=== PATIENT | female | born 1955 | race Caucasian/White ===

== ENCOUNTER 2016-11-15 04:15 | Inpatient (IN) | payer OTHER ==
--- NOTE | ~2016-11-15 | CO ---
Unit #: [id number] #: [id number] Patient: DONNIE RILEY [id number] [facility] [address] [facility]. [place], [place] [address] [id number] I MR#: [id number] NAME: DONNIE RILEY ROOM: 324 Age: 61 Sex: F Admission Date: 11/15/2016 : 1955 Attending Physician: Michael Boogie M.D. Primary Care Physician: Alanis Perez Aprn Requesting Physician: Michael Boogie M.D. Consultation Date: 11/16/2016 CONSULTATION REPORT REASON FOR CONSULT Surgical clearance and congestive heart failure. HISTORY OF PRESENT ILLNESS This is a 60-year-old female with a past medical history of poorly-controlled diabetes, hypertension, chronic diastolic heart failure, and peripheral vascular disease, admitted with pain and an infection to her left foot, fourth toe, extending to the fifth toe. She presented to the emergency room with the chief complaint of foul-smelling discharge and dark discoloration of her left fourth toe. She had been noticing increased discharge for the last few days. She denied any fever, she denied any chills, and she denied any vomiting. Today, she does complain of nausea. She denies any bloody stools. She has no dizziness, no chest pain, no palpitations, and no shortness of breath. In the emergency room, she was noted to have an elevated white count. The plan for today is left toe amputation. Cardiology has been consulted to evaluate her surgical risk. She had a recent cardiac workup. She follows with Dr. Lynne in the office. She had a 2D echo in August 2016 when she was last admitted to [facility] which showed an EF of 60% and grade 1 diastolic dysfunction. She had a repeat 2D echo on September 21, 2016. Her EF was calculated at 53%. She had global left ventricular wall motion, and contractility was within normal limits. Normal LV function. Normal RV function. There was mild mitral regurgitation and tricuspid regurgitation. Right ventricular systolic pressure was calculated at 26 mmHg. Aortic valve was normal. There was LVH noted and grade 1 left ventricular diastolic dysfunction noted. She also had on October 22, 2016, a Lexiscan Cardiolite nuclear stress test which showed an EF of 50% and small distal anteroapical wall ischemia. I do not have her 12-lead EKG in front of me to review. However, tele review shows sinus rhythm in the 70s with no ectopic beats. PAST SURGICAL HISTORY 1. Cholecystectomy. 2. section. 3. Tonsillectomy. 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 She lives with her son and . She has never smoked and denies alcohol or any illicit drug use. Unit #: [id number] #: [id number] Patient: DONNIE RILEY FAMILY HISTORY Her father had some CHF. She is unsure of how old he was at the time of diagnosis and denies any other family cardiovascular history. ALLERGIES No known allergies. HOME MEDICATIONS 1. Norvasc 10 mg daily. 2. Lasix 40 mg daily. 3. Lisinopril 20 mg b.i.d. 4. Glucophage 1000 mg b.i.d. 5. Metoprolol succinate 100 mg b.i.d. 6. Protonix 40 mg daily. 7. Januvia 100 mg daily. 8. Aldactone 25 mg daily. REVIEW OF SYSTEMS A 12-point review of systems was noted in the History of Present Illness. She has no complaints today other than pain to her left foot and nausea. She denies any dizziness, she denies any chest pain, she denies any palpitations, she denies any shortness of breath, she denies any edema, and she denies any numbness or tingling to her feet. She reports that she walks well. She fell one month ago. That was after a mechanical slip however. PHYSICAL EXAMINATION VITAL SIGNS: Temperature 98.4, heart rate 91, respiratory rate 18, and blood pressure was 160/74. Please note though, her blood pressure on arrival on November 15, 2016, when she presented to the hospital was 200/99. GENERAL: She is seen and examined in her hospital room. She appears in mild distress due to her pain, and she is somewhat ill appearing. HEENT: Pupils are equal, round, and reactive to light and accommodation with extraocular movements intact. Head is normocephalic and atraumatic. She has pink and dry mucosal membranes. She has no teeth. She has top and bottom dentures. LUNGS: Clear to auscultation bilaterally. CARDIOVASCULAR: Regular rate and rhythm. S1 and S2 noted with a 2/6 systolic ejection murmur heard best at the apex. ABDOMEN: Soft and nontender with positive bowel sounds. EXTREMITIES: She has no edema noted but chronic venous stasis skin changes with yellow scaling to bilateral feet. She has no pedal pulses to her left foot and palpable pedal pulses to her right lower extremity. NEUROLOGIC: She is alert and oriented x3, pleasant and cooperative. DIAGNOSTIC STUDIES LABORATORY: Sodium 134, potassium 3.5, chloride 100, CO2 of 22, BUN 37, creatinine 1.2, and glucose 226. Total cholesterol is 140, triglycerides 105, LDL 92, and HDL 27. WBC 21.4, hemoglobin 9.6, hematocrit 28.5, and platelets 351,000. IMAGING: Three-view of the left foot on November 15, 2016, showed no acute fracture or dislocation and no osteomyelitis. Osteopenia. Advanced atherosclerotic changes. Left foot and ankle osteoarthritic changes as described above with prominent plantar calcaneal spur. CARDIOLOGY: I do not have an EKG from this admission, but an EKG from her last admission in August 2016 showed normal sinus rhythm with possible Unit #: [id number] #: [id number] Patient: DONNIE RILEY left atrial enlargement, low voltage QRS with T wave abnormality in lateral leads, prolonged QTc was calculated at 462, and atrial rate of 92 beats per minute, and this was unchanged from a previous EKG. IMPRESSION 1. Resistant hypertension. 2. Left foot pain and infection. 3. Diabetes. 4. Peripheral vascular disease. 5. Venous stasis. 6. Leukocytosis. PLAN Cardiology is asked to see her for surgical clearance. She had a recent workup which was essentially normal and follows with Dr. Lynne. She is very hypertensive. We will adjust her blood pressure medicine. She is on Spironolactone 25 mg daily, she is on a full dose of Norvasc and a full dose of Lopressor 100 b.i.d. She is on lisinopril 20 b.i.d. and Lasix 40 daily. We will also add hydralazine scheduled 25 mg 3 times daily. I do not have an EKG from this admission. I will ask for an EKG to be done before surgical plans later today for left toe amputation. She has been n.p.o. and will remain n.p.o. until postop. Further plans per attending. We will continue to follow her through her hospitalization for any cardiac-related issues. Thank you for this consultation. Dictated by.Nilsa Banerjee APRN for Elida Roblero TD: 11/17/2016 15:04 JOB #: [id number] CC: Roger Sanches M.D. CONSULTATION REPORT X X CONSULTATION REPORT
--- NOTE | ~2016-11-15 | XA166 ---
[facility] A Service of [facility] & [facility] RADIOLOGY TEXT RESULTS PATIENT: DONNIE RILEY LOCATION: C3A 324-01 : 55 UNIT #: [id number] AGE: [address]: Michael Boogie MD SEX: F ORDER DR: [id number] [facility] [address] [facility]. [place], [place] [address] [id number] I MR#: [id number] Acc #: [id number] NAME: DONNIE RILEY : 1955 SEX: F STUDY DATE/TIME: 11/17/2016 11:52 UNIT: C3A PCU ROOM: 324 STUDY DESCRIPTION: XA PICC Line Placement WO Port Attending Physician: Michael Boogie M.D. Referring Physician: Self Referral-Refer Use Only Ordering Physician: Michael Boogie M.D. Primary Care Physician: Alanis Perez Aprn MEDICAL IMAGING REPORT This report is preliminary unless electronic signature is present EXAM PICC line insertion, 11/17/2016 CLINICAL HISTORY IV access needed. PRE-PROCEDURE The procedure was explained to the patient and/or patient career services representative including risks, benefits, potential complications and potential for alternative forms of treatment. Informed consent was obtained, and prior to initiating the procedure a formal timeout procedure was performed. PROCEDURE Using full standard sterile barrier technique, including caps, gowns, gloves, masks, as well as sterile skin preparation and standard sterile draping, the right arm was prepped and draped in the usual fashion, and real-time sterile ultrasound guidance was used to localize an arm vein and to confirm vessel patency. A hard copy ultrasound image was recorded. After local anesthesia with 1% Xylocaine, the vein was punctured using real-time sterile ultrasound guidance, and an 0.018 guidewire was advanced into the superior vena cava, using fluoroscopic guidance. A 5 Swedish dual-lumen PICC was then measured and deployed with the tip positioned in the superior vena cava. The position of the line was documented with a radiographic image. The line was secured in place with an adhesive dressing and an antibiotic patch was applied. Total fluoro time was 0.2 minutes. Single fluoroscopic spot image. IMPRESSION Successful placement of a 5 Swedish dual-lumen PowerPICC via the arm under ultrasound and fluoroscopic guidance. The tip of the PICC is in good position in the superior vena cava. [facility]. [facility] A Service of [facility] RADIOLOGY TEXT RESULTS PATIENT: DONNIE RILEY LOCATION: C3A 324-01 : 55 UNIT #: [id number] AGE: [address]: Michael Boogie MD SEX: F ORDER DR: Dictated by... Watson Moraes M.D. THIS IS AN ELECTRONICALLY VERIFIED REPORT Watson Moraes M.D. at 11/18/2016 3:35 PM ARIAN/dana TD: 11/18/2016 03:19 JOB #: [id number] MEDICAL IMAGING REPORT COPY
--- NOTE | ~2016-11-15 | CR126 ---
[facility] A Service of [facility] & [facility] RADIOLOGY TEXT RESULTS PATIENT: DONNIE RILEY LOCATION: [facility] 324-01 : 55 UNIT #: [id number] AGE: [address]: Michael Boogie MD SEX: F ORDER DR: [id number] [facility] [address] [facility]. [place], [place] [address] [id number] I MR#: [id number] Acc #: [id number] NAME: DONNIE RILEY : 1955 SEX: F STUDY DATE/TIME: 11/15/2016 5:04 UNIT: [facility] ROOM: 82017 STUDY DESCRIPTION: CR Foot Complete Min 3 View Lt Attending Physician: Michael Boogie M.D. Referring Physician: Self Referral-Refer Use Only Ordering Physician: Alice Aparicio M.D. Primary Care Physician: Alanis Perez Aprn MEDICAL IMAGING REPORT This report is preliminary unless electronic signature is present EXAM Left foot 3 views 11/15/2016 05:04 HISTORY Left foot pain and fourth digit infection for 4 days. No known injury. Diabetes. COMPARISON None. FINDINGS Evaluation of the toes is limited secondary to extension at the MTP joints and flexion at the interphalangeal joints. Allowing for this, no acute fracture or joint dislocation is seen. Osteopenic changes are present. No plain film evidence of osteomyelitis. Dense calcific atherosclerosis is seen within the left foot and ankle. Degenerative spurring of the posterior tibia at its articular surface. Prominent plantar calcaneal spur. Mild dorsal midfoot spurring. IMPRESSION 1. No acute fracture or dislocation. No plain film evidence of osteomyelitis with particular attention to the fourth digit. 2. Osteopenia. 3. Advanced atherosclerotic changes. 4. Left foot and ankle osteoarthritic changes as described above with prominent plantar calcaneal spur. Dictated by... Sun Hendrickson M.D. THIS IS AN ELECTRONICALLY VERIFIED REPORT Sun Hendrickson M.D. at 11/15/2016 10:02 PM [facility] A Service of [facility] RADIOLOGY TEXT RESULTS PATIENT: DONNIE RILEY LOCATION: A 324-01 : 55 UNIT #: [id number] AGE: [address]: Michael Boogie MD SEX: F ORDER DR: SHELLEY/fara TD: 11/15/2016 08:52 JOB #: [id number] MEDICAL IMAGING REPORT COPY
--- NOTE | ~2016-11-15 | OR ---
Unit #: [id number] #: [id number] Patient: DONNIE RILEY [id number] [address] [place], [place] [address] [id number] I MR#: [id number] NAME: DONNIE RILEY ROOM: 324 Date of Procedure: 11/16/2016 Admission Date: 11/15/2016 Surgeon: Maximilian Dave M.D. : 1955 Attending Physician: Michael oBogie M.D. Primary Care Physician: Alanis Perez Aprn OPERATIVE REPORT PREOPERATIVE DIAGNOSIS Left fourth toe gangrene. POSTOPERATIVE DIAGNOSIS Left fourth toe gangrene. PROCEDURE PERFORMED Left fourth toe open amputation through metatarsophalangeal joint (34182). ASSISTANTS MD Sloan and BIENVENIDO Flores. ANESTHESIA General. INDICATIONS FOR SURGERY This is 60-year-old female with diabetes, diabetic neuropathy, and peripheral vascular disease, presents with a 3-day history of worsening left fourth toe gangrene. She has a dorsalis pedis pulse. She has a malodorous toe and has underlying infection. She is therefore to undergo fourth toe amputation. DESCRIPTION OF PROCEDURE The patient was taken to the operating room and placed in a supine position, and general anesthetic was induced. The left fourth toe was identified as the correct operative extremity during the time-out procedure. The IV antibiotic protocol was not followed, because she was on preoperative IV antibiotics. The left foot was then prepped and draped in the usual sterile fashion. The leg was exsanguinated with an Esmarch bandage, which was left wrapped around the ankle to act as a tourniquet. Dorsal and plantar fish-mouth incisions were made at the base of the toe and dissection proceeded directly down to the metatarsophalangeal joint and the capsule was opened. The collateral ligaments were divided and the toe was removed. There was dark fluid extending up the flexor tendon sheath associated with some purulence. This was cultured for aerobic and anaerobic bacteria. All appearing tissue was removed. All infected appearing tissue was removed. The wound was then irrigated with 1 L of normal saline. The wound was packed open with Betadine-soaked 1-inch roll gauze. Dressing, sponges, Kerlix, Rocco wrap, and postop shoe were placed. The patient was then transported to the recovery room in stable condition. Unit #: [id number] #: [id number] Patient: DONNIE RILEY ESTIMATED BLOOD LOSS Minimal. COMPLICATIONS None. SPECIMENS 1. Left fourth toe. 2. Left foot culture and sensitivity. PLAN The patient will undergo serial wet-to-dry dressing changes with 1/2 strength Dakin solution and IV antibiotics. We will either close the wound secondarily in 4 to 5 days or allow the wound to close by secondary intention. Dictated by.Elida García/jitendra TD: 11/16/2016 18:58 JOB #: [id number] OPERATIVE REPORT X Antoine Dave MD X PROCEDURE OPERATIVE NOTE
--- NOTE | ~2016-11-15 | EKG ---
PATIENT: DONNIE RILEY UNIT #: [id number] Ventricular Rate: 74 BPM Atrial Rate: 74 BPM P-R Interval: 136 ms QRS Duration: 98 ms Q-T Interval: 408 ms QTC Calculation(Bezet): 452 ms P [place]: 54 degrees Calculated R [place]: 11 degrees Calculated T [place]: 118 degrees Diagnosis Line: Normal sinus rhythm Diagnosis Line: T wave abnormality, consider lateral ischemia Diagnosis Line: Abnormal ECG Diagnosis Line: When compared with ECG of 02-SEP-2016 03:39, Diagnosis Line: No significant change was found Diagnosis Line: Confirmed by NATIVIDAD ZHONG MD ([id number]) on Diagnosis Line: 11/17/2016 11:23:34 AM INTERPRETING MD: FARHEEN CHU
--- NOTE | ~2016-11-15 | OR ---
Unit #: [id number] #: [id number] Patient: DONNIE RILEY [id number] [address] [place], [place] [address] [id number] I MR#: [id number] NAME: DONNIE RILEY ROOM: 324 Date of Procedure: 11/25/2016 Admission Date: 11/15/2016 Surgeon: Maximilian Dave M.D. : 1955 Attending Physician: Michael Boogie M.D. Referring Physician: Self Referral-Refer Use Only Primary Care Physician: Alanis Perez Aprn OPERATIVE REPORT PREOPERATIVE DIAGNOSES 1. Left third toe gangrene. 2. Left foot wound. POSTOPERATIVE DIAGNOSES 1. Left third toe gangrene. 2. Left foot wound. PROCEDURES PERFORMED 1. Left third toe amputation through metatarsophalangeal joint (33804). 2. Left foot wound closure (26935). PRODUCT MANAGEMENT INTERN Saccone. ANESTHESIA General. INDICATIONS FOR SURGERY The patient is a 60-year-old female, who underwent left fourth toe open amputation 9 days ago. She now has a granulating wound with gangrene of the adjacent third toe. She therefore requires third toe amputation as well as wound closure. Her deep infection appears to be resolved. DESCRIPTION OF PROCEDURE The patient was taken to the operating room and placed in supine position. General anesthetic was induced. The left foot was identified as the correct operative extremity during the time-out procedure. The IV antibiotic protocol was not followed because she was on preoperative IV antibiotics. The left foot was then prepped and draped in the usual sterile fashion. The foot was exsanguinated with an Esmarch bandage, which was left wrapped around the ankle to act as a tourniquet. Dorsal and plantar fish-mouth incisions were made around the base of the third toe. The subcutaneous tissue was divided. The toe was disarticulated by dividing the collateral ligaments as well as the extensor and flexor tendons. The toe was removed and sent to pathology. Aerobic and anaerobic cultures were taken. There was necrosis of the plantar fat pad underlying the third toe. This was excised. All necrotic tissue was sharply debrided. The wound was then irrigated with 1 L of normal saline. The wound was then closed in layers using 3-0 Vicryl simple sutures and 3-0 nylon simple and dpt-hulf-mori-far sutures. Unit #: [id number] #: [id number] Patient: DONNIE RILEY gauze dressing, sponges, Webril, Rocco wrap, and postoperative shoe were placed. The patient was then transported to the recovery room in stable condition. ESTIMATED BLOOD LOSS Minimal. COMPLICATIONS None. SPECIMENS Left foot cultures and left third toe. Dictated by.Elida García/jitendra TD: 11/26/2016 06:08 JOB #: [id number] OPERATIVE REPORT Page 1 of 1 X Antoine Dave MD X PROCEDURE OPERATIVE NOTE
--- NOTE | ~2016-11-15 | DS ---
Unit #: [id number] #: [id number] Patient: DONNIE RILEY [id number] [address] [place], [place] [address] [id number] I MR#: [id number] NAME: DONNIE RILEY ROOM: 324 Age: 61 Sex: F Admission Date: 11/15/2016 : 1955 Discharge Date: 11/27/2016 Attending Physician: Michael Boogie M.D. Primary Care Physician: Alanis Perez Aprn DISCHARGE SUMMARY ADDENDUM The patient tolerated her procedure well and currently denies pain. She states that she has had no further nausea or vomiting. As a result of these things, she is being discharged home to continue one week of IV antibiotics for her diabetic foot infection. The patient was started on insulin for her diabetes, but has had significant problems with hypoglycemia. As a result, I am not sending her home on insulin, but we will continue her Glucophage and Januvia. She should certainly see her primary care provider; however, given that her hemoglobin A1c is 11. DISCHARGE MEDICATIONS Glucophage 1000 mg p.o. b.i.d., Januvia 100 mg p.o. daily, Phenergan 25 mg p.o. q.4 hours p.r.n., Norvasc 10 mg daily, metoprolol succinate 100 mg p.o. b.i.d., Lasix 20 mg daily, Lipitor 20 mg p.o. q.h.s., lisinopril 20 mg p.o. b.i.d., aspirin 81 mg daily, Aldactone 25 mg daily, Protonix 40 mg daily, Rocephin 2 g IV daily x1 week. FOLLOWUP The patient being discharged home with home health for PT, OT, IV antibiotic. Additionally, the patient should follow up with Dr. Maximilian Dave in 10 to 14 days. The patient should keep the dressing intact until seen in the office. DISCHARGE DIET The patient should maintain a diabetic diet. Additionally, the patient should follow up with her primary care provider in one week. Dictated by... Bravo Alford M.D. NATALI/jitendra TD: 11/27/2016 18:58 JOB #: [id number] Unit #: [id number] #: [id number] Patient: DONNIE RILEY DISCHARGE SUMMARY Page 1 of 1 X Bravo Alford MD X DISCHARGE SUMMARY
--- NOTE | ~2016-11-15 | HP ---
Unit #: [id number] #: [id number] Patient: DONNIE RILEY [id number] [address] [place], [place] [address] [id number] I MR#: [id number] NAME: DONNIE RILEY ROOM: 324 Age: 60 Sex: F Admission Date: 11/15/2016 : 1955 Attending Physician: Michael Boogie M.D. Referring Physician: Self Referral-Refer Use Only Primary Care Physician: Alanis Perez Aprn HISTORY AND PHYSICAL CHIEF COMPLAINT Pain and swelling of the left foot fourth toe. HISTORY OF PRESENT ILLNESS The patient is a 60-year-old lady with a past medical history of diabetes mellitus, hypertension, history of congestive heart failure with a recent cardiac cath done at [facility] with Dr. Lynne. Presented to the emergency room with a chief complaint of foul-smelling discharge and dark dislocation of left foot fourth toe. 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 She denies any fever. Denies any chills. Complains of nausea. Denies any vomiting. Denies any diarrhea. In the emergency room initial evaluation, she was noted to have an elevated WBC count and with wet gangrene. For further evaluation, she is getting admitted. PAST MEDICAL HISTORY 1. History of congestive heart failure with a recent cath done at [facility]. She does not know the echo results. She mentioned that she was told the cath was normal. 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 2. History of diabetes mellitus type 2. 3. History of hypertension. 4. History of obesity. 5. Noncompliance. ALLERGIES No known drug allergies. HOME MEDICATIONS 1. Norvasc 10 mg daily. 2. Lasix 40 mg daily. 3. Lisinopril 20 mg twice a day. 4. Metformin 1000 mg twice a day. 5. Metoprolol 100 mg twice a day. 6. Protonix 40 mg daily. 7. Januvia 100 mg daily. 8. Aldactone 25 mg daily. ALLERGIES No known drug allergies. SOCIAL HISTORY Denies any smoking, alcohol, illicit drugs. Unit #: [id number] #: [id number] Patient: DONNIE RILEY REVIEW OF SYSTEMS A complete review of systems done and negative except for what is mentioned in the HPI. FAMILY HISTORY Positive for diabetes and congestive heart failure in her father. PHYSICAL EXAMINATION VITAL SIGNS: Temperature 98.8, pulse rate 96, respiratory rate 17, blood pressure 180/85. GENERAL: The patient is alert and oriented x3. Lying in the bed in no acute distress. HEENT: Normocephalic and atraumatic. No icterus. PERRLA. Extraocular muscles intact. NECK: Supple. No JVD. HEART: S1, S2. Regular rate and rhythm. CHEST: Bilateral equal air entry. Clear to auscultation. ABDOMEN: Obese, soft, nontender. EXTREMITIES: Trace edema. Left foot is totally dressed. She would not let me unwrap it. She has a foul-smelling discharge. DIAGNOSTIC STUDIES LABORATORY: Glucose 277, BUN 25, creatinine 0.9, sodium 134, potassium 3.5, chloride 95, bicarbonate 25. WBC 24.2, hemoglobin 12, platelets 427,000, neutrophils 88.2. ASSESSMENT AND PLAN 1. Diabetic foot infection with left fourth toe wet gangrene. Orthopedic surgery is consulted. She is currently getting vancomycin and Zosyn. Blood cultures were sent. Will go from ortho input. Possibly, she may end up having an amputation of the fourth toe tomorrow. 2. History of congestive heart failure: I will try to obtain the records from [facility]. Cardiology is consulted. Will discuss with them. She mentions that she is able to walk two blocks without feeling any shortness of breath or chest pain. She mentions that she does not wake up in the night due to shortness of breath. She should be okay to go for surgery with acceptable risk. Her last echocardiogram done in August showed an ejection fraction of 60%, possibly diastolic heart failure. 3. Hypertensive crisis: Doubt compliance. Will give her p.r.n. hydralazine. Will resume her home medications and monitor. 4. Diabetes: Poorly controlled type 2. Encouraged compliance with the medications. Will check an A1c and possibly start her on insulin sliding scale. 5. Will also check a lipid panel. 6. Deep venous thrombosis precautions. 7. Further recommendations per hospital course. Dictated by Michael Boogie M.D. PS/ch TD: 11/15/2016 11:51 JOB #: [id number] Unit #: [id number] #: [id number] Patient: DONNIE RILEY HISTORY AND PHYSICAL X X HISTORY AND PHYSICAL
--- NOTE | ~2016-11-15 | A ---
[facility] Nutrition Therapy DATE: 11/26/16 Patient: DONNIE RILEY Physician: HAZEL Address: [address] [place] [address] Room/Bed: [address], Zip: [place] [address] Admit Date: 11/15/16 Date of : [birth year] Height: 4 11 Weight: 135 61.5 NUTRITIONAL ASSESSMENT: REASON: LOS 60 y/o female admitted for an infected L foot PMH: DM, HTN, CHF Anthropometrics: Ht: 4'11" Wt: 61.4 kg (135#) BMI: 27.3 Labs: Gluc 66, BUN 28, GFR 48.7 Meds: Phenergan, K, Mg, Lipitor, Furosemide, Novolog, Zofran I/O & Bowel function: 2694/1601, last BM 11/25 Skin Integrity: Closed surgical incision (L foot), no edema noted Assessment: Chart reviewed, events noted. Pt is POD #1 of L foot wound closer and 3rd toe amputation, POD #2 L 4th toe amputation. Gluc levels have ranged from 131-368, today levels have dropped to 66 d/t NPO status. Pt reports consuming most of meals while here. Pt reports occasional N/V. Pt denied having any questions regarding nutrition/ her diet. See recommendations below. Dx: Overweight RT PMH AEB 27.3 BMI. Intervention: 1. CC + HH diet Monitoring, Evaluation and Goals: 1. Weight; promote gradual weight loss 2. Labs; WNL: Gluc 3. Skin; promote skin healing Recommendations: 1. Change diet to consistent carb + healthy heart diet to promote gradual weight loss. Pt is at a mild nutritional risk. RD will f/u per protocol. Respectfully, [facility] Nutrition Therapy DATE: 11/26/16 Patient: DONNIE RILEY Physician: HAZEL Address: [address] Room/Bed: [address], Zip: [place] [address] Admit Date: 11/15/16 Date of : [birth year] Height: 4 11 Weight: 135 61.5 PATRICIO BAXTER, [employer] [facility] cc: client file
--- NOTE | ~2016-11-15 | CO ---
Unit #: [id number] #: [id number] Patient: DONNIE RILEY [id number] [address] [address] [id number] I MR#: [id number] NAME: DONNIE RILEY ROOM: 324 Age: 61 Sex: F Admission Date: 11/15/2016 : 1955 Attending Physician: Michael Boogie M.D. Primary Care Physician: Alanis Perez Aprn Consultation Date: 11/15/2016 CONSULTATION REPORT REASON FOR CONSULTATION Right foot wound and infection. HISTORY OF PRESENT ILLNESS The patient is a 60-year-old female, who was previously admitted back in 08/2016 for hypertensive crisis as well as CHF exacerbation. At that period of time, she was subsequently discharged without any notable complications. She comes today to the emergency room with progressive worsening of a left foot fourth digit infection. She states that the toe has started to change colors over the last several days and it started to have an abnormal odor and smell to it. She denies any constitutional symptoms today. PAST MEDICAL HISTORY Significant for; 1. Hypertension. 2. Diabetes. 3. CHF. MEDICATIONS Includes Norvasc 10 mg daily, Lasix 40 mg daily, lisinopril 20 mg b.i.d., Glucophage 1000 mg b.i.d., metoprolol 100 mg b.i.d., Protonix 40 mg daily, Januvia 100 mg daily, and Aldactone 25 mg daily. ALLERGIES No known drug allergies. PAST SURGICAL HISTORY Cholecystectomy, , and tonsillectomy. FAMILY HISTORY The patient lives here in [place]. 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 SOCIAL HISTORY She denies any tobacco, alcohol, or illicit drug use. REVIEW OF SYSTEMS A 10-point review of systems was performed and negative except for pertinent positives listed in HPI. PHYSICAL EXAMINATION VITAL SIGNS: Afebrile. Vital signs stable. GENERAL: Alert and oriented x3, in no acute distress. Unit #: [id number] #: [id number] Patient: DONNIE RILEY EXTREMITIES: Focused lower extremity examination, dermatological: There is dry circumferential gangrene to left foot fourth digit localized to the middle phalanx and distal to the terminal tuft. There is localized surrounding erythema with no proximal lymphatic streaking noted. There is no crepitation noted upon palpation of the soft tissues. There is malodor present. NEUROLOGICAL: Loss of protective sensation. VASCULAR: Nonpalpable posterior tibial pulse of the left lower extremity. There is a minimally palpable dorsalis pedis pulse of the left lower extremity. There is zero capillary refill time to the left foot fourth digit. The rest of the digits are warm and well perfused. MUSCULOSKELETAL: She is able to wiggle the digits of her left foot. Dorsiflexion and plantar flexion of the ankle is intact. DIAGNOSTIC STUDIES LABORATORY RESULTS: There is a leukocytosis. White cell count of 24.2, hemoglobin 12, hematocrit 34.7, platelets 427. BMP; sodium is 134, potassium 3.5, chloride 95, CO2 of 25, BUN 25, creatinine 0.9, glucose 277. Lactic acid was 1.2 on initial admission, repeat was 0.9. CRP is elevated at 14.3. Preliminary wound cultures demonstrated gram-positive cocci in pairs, as well as gram-negative rods. IMAGING STUDIES: X-rays demonstrate Monckeberg medial calcific sclerosis with no evidence of any underlying osteomyelitis, osteolysis, or subcutaneous soft tissue gas emphysema. ASSESSMENT AND PLAN The patient is a 60-year-old female with a history of congestive heart failure, peripheral arterial disease, as well as an underlying history of diabetes and hypertension. She will be admitted today to the hospital for left foot fourth digit gangrene. At this period of time, she does have a palpable dorsalis pedis pulse and nonpalpable posterior tibial pulse. We do not need ABIs at this period of time. The x-rays demonstrate that there is no evidence of any underlying soft tissue gas emphysema, or osteomyelitis. We are going to continue her vancomycin and Zosyn at this period of time. She is going to be scheduled for the OR tomorrow on 11/16/[address] Dave for a left foot fourth digit toe amputation. She can have a diabetic diet for now. She is going to be n.p.o. at midnight. We are going to discontinue her anticoagulation at midnight. Consent was placed in the chart for the surgery and the risks, benefits, complications, and alternatives were discussed with the patient. Morning labs were ordered for CBC with diff, BMP, and coagulation studies. We did a Betadine wet-to-dry dressing today to the left foot fourth digit. She can be weightbearing as tolerated in a postoperative shoe. We had consults for Cardiology to clear the patient for surgery tomorrow as well as HIPS consultation to admit the patient to the hospital. We are going to continue all her home medications at this period of time. Dictated by... Graeme Flores M.D. for Elida Mejia/jitendra TD: 11/15/2016 14:26 JOB #: [id number] Unit #: [id number] #: [id number] Patient: DONNIE RILEY CONSULTATION REPORT X X CONSULTATION REPORT
--- NOTE | ~2016-11-15 | DS ---
Unit #: [id number] #: [id number] Patient: DONNIE RILEY [id number] [address] [place], [place] [address] [id number] I MR#: [id number] NAME: DONNIE RILEY ROOM: 324 Age: 61 Sex: F Admission Date: 11/15/2016 : 1955 Discharge Date: Attending Physician: Michael Boogie M.D. 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 PROCEDURES DONE She had a left fourth toe gangrene, status post amputation of the toe on the 11/16/2016 and on the 11/25/2016, she had an amputation of the third toe. ADMITTING DIAGNOSIS Diabetic foot infection. SECONDARY DIAGNOSES Diabetes, type 2, poorly controlled; history of hypertension; history of congestive heart failure. HISTORY OF PRESENT ILLNESS The patient is a 60-year-old lady with a past medical history of diabetes mellitus, hypertension, history of congestive heart failure with a recent catheterization done at [facility], presented to the emergency with a chief complaint of foul-smelling discharge from the fourth toe. HOSPITAL COURSE She was seen by Dr. Dave. She had an amputation of the fourth toe. The wound cultures grew Streptococcal species Strep agalactiae and Strep milleri. She was started on Rocephin. She got a PICC line and Orthopedic surgery on the mentioned she needs a second surgery and she was in the hospital for the second surgery. Yesterday, she had a second surgery and she had an amputation of the third toe. Postoperatively, she was having severe nausea and vomiting and her sugars were dropping down. We held her Levemir today mainly because her sugars were dropping down and once her sugars are stable enough, she will be able to go home. She does have a PICC line. She needs antimicrobials for a couple of weeks. Kindly note, the infected toe has been removed and home health care is being arranged by the hospice case manager. Kindly note, a final discharge summary will be dictated by me or my colleagues at the time of actual discharge. Dictated by... Elida Bhatia/jitendra Unit #: [id number] #: [id number] Patient: DONNIE RILEY TD: 11/27/2016 02:50 JOB #: [id number] DISCHARGE SUMMARY Page 1 of 1 X X DISCHARGE SUMMARY
--- NOTE | ~2016-11-15 | EKG ---
PATIENT: DONNIE RILEY UNIT #: [id number] Ventricular Rate: 56 BPM Atrial Rate: 56 BPM P-R Interval: 136 ms QRS Duration: 94 ms Q-T Interval: 440 ms QTC Calculation(Bezet): 424 ms P [place]: 57 degrees Calculated R [place]: 38 degrees Calculated T [place]: 135 degrees Diagnosis Line: Sinus bradycardia Diagnosis Line: T wave abnormality, consider lateral ischemia Diagnosis Line: Abnormal ECG Diagnosis Line: No previous ECGs available Diagnosis Line: Confirmed by TOMA ELIZABETH MD ([id number]) on 11/29/2016 Diagnosis Line: 10:43:36 PM INTERPRETING MD: CLARA CHU
[~2016-11-15 04:15] MED LIST: ALDACTONE PO; ALDACTONE25 MG PO; ALEVE; AMOXICILLIN500 M1 PO; BENZONATATE PO; EC-NAPROSYN500 MG PO; ERYTHROMYCIN O3.5 GM OD; GLUCOPHAGE500 MG PO; JANUVIA PO; LASIX PO; LASIX20 MG PO; LISINOPRIL20 MG PO; METFORMIN PO; METOPROLOL SUC100 MG PO; NORVASC10 MG PO; PANTOPRAZOLE SO40 MG PO; PROTONIX PO; ROBITUSSIN A-C S5 ML PO
[2016-11-15 05:29] LABS: BASOPHIL# 0.1 X10e3 (0-0.3); BASOPHIL% 0.4 % (0-2.5); EOSINOPHIL# 0.1 X10e3 (0-0.7); EOSINOPHIL% 0.6 % (0.0-7.0); HEMATOCRIT 34.7 % (35.0-45.0); LYMPHOCYTE# 1.2 X10e3 (1.0-3.5); LYMPHOCYTE% 4.7 % (17.0-45.0); MEAN CELL VOLUME 86.4 FL (83-96); MEAN CORPUSCULAR HEMOGLOBIN 29.9 PG (28-34); MEAN CORPUSCULAR HGB CONC 34.6 g/dL (30-36); MEAN PLATELET VOLUME 7.7 FL (6.5-11.5); MONOCYTE# 1.5 X10e3 (0-1.0); MONOCYTE% 6.1 % (3.0-12.0); NEUTROPHIL# 21.4 X10e3 (1.5-7.1); NEUTROPHIL% 88.2 % (40-75); PLATELET COUNT 427 X10e3 (140-420); RED BLOOD COUNT 4.02 X10e (3.90-5.30); RED CELL DISTRIBUTION WIDTH 12.7 % (11.0-15.5); WHITE BLOOD COUNT 24.2 X10e3 (4.0-10.5)
[2016-11-15 05:30] LABS: DIFF IND YES
[2016-11-15 05:44] LABS: BLOOD UREA NITROGEN 25 mg/dL (9-23); BUN/CREATININE RATIO 27.77; CALCIUM SERUM 9.1 mg/dL (8.4-10.2); CARBON DIOXIDE 25 mmol/L (22-31); CHLORIDE 95 mmol/L (100-111); CREATININE SERUM 0.9 mg/dL (0.6-1.4); GLOM FILT RATE Estimated ABOVE60 mL/min (>60); GLUCOSE FASTING 277 mg/dL (70-110); POTASSIUM 3.5 mmol/L (3.5-5.1); SODIUM 134 mmol/L (135-145)
[2016-11-15 05:46] LABS: INR 1.1; PARTIAL THROMBOPLASTIN TIME 24.2 SECONDS (23.5-31.3); PROTHROMBIN TIME (PATIENT) 11.5 SECONDS (9.6-11.5)
[2016-11-15 05:51] LABS: PLATELET ESTIMATE NORMAL (NORMAL); RBC NORMAL YES
[2016-11-16 07:33] LABS: HEMATOCRIT 28.5 % (35.0-45.0); MEAN CELL VOLUME 88.4 FL (83-96); MEAN CORPUSCULAR HEMOGLOBIN 29.7 PG (28-34); MEAN CORPUSCULAR HGB CONC 33.6 g/dL (30-36); MEAN PLATELET VOLUME 7.8 FL (6.5-11.5); RED BLOOD COUNT 3.22 X10e (3.90-5.30); RED CELL DISTRIBUTION WIDTH 12.8 % (11.0-15.5); WHITE BLOOD COUNT 21.4 X10e3 (4.0-10.5)
[2016-11-16 07:39] LABS: HEMOGLOBIN 9.6 gm/dL (12.0-16.0)
[2016-11-16 08:01] LABS: BUN/CREATININE RATIO 30.83; CALCIUM SERUM 8.4 mg/dL (8.4-10.2); CREATININE SERUM 1.2 mg/dL (0.6-1.4); GLOM FILT RATE Estimated 48.5 mL/min (>60); POTASSIUM 3.5 mmol/L (3.5-5.1)
[2016-11-16 08:03] LABS: CHOLESTEROL 140 mg/dL (0-200); HDL CHOLESTEROL 27 mg/dL (35-95); LDL CHOLESTEROL 92 mg/dL (-130); LDL/HDL RATIO 3 RATIO (0-4); TRIGLYCERIDES 105 mg/dL (10-160)
[2016-11-16 23:48] LABS: URINE BILIRUBIN NEG (NEG); URINE BLOOD NEG (NEG); URINE GLUCOSE 100 MG/DL (NORM); URINE KETONE NEG (NEG); URINE LEUKOCYTE ESTERASE NEG (NEG); URINE NITRATE NEG (NEG); URINE PROTEIN 2+ (NEG); URINE UROBILINOGEN NORM (NORM)
[2016-11-16 23:53] LABS: URINE APPEARANCE CLOUDY; URINE COLOR YELLOW
[2016-11-17 07:16] LABS: HEMATOCRIT 27.4 % (35.0-45.0); HEMOGLOBIN 9.2 gm/dL (12.0-16.0); MEAN CELL VOLUME 88.2 FL (83-96); MEAN CORPUSCULAR HEMOGLOBIN 29.5 PG (28-34); MEAN CORPUSCULAR HGB CONC 33.4 g/dL (30-36); MEAN PLATELET VOLUME 7.4 FL (6.5-11.5); RED BLOOD COUNT 3.11 X10e (3.90-5.30); RED CELL DISTRIBUTION WIDTH 13.2 % (11.0-15.5); WHITE BLOOD COUNT 22.8 X10e3 (4.0-10.5)
[2016-11-17 08:13] LABS: BUN/CREATININE RATIO 32.14; CALCIUM SERUM 8.4 mg/dL (8.4-10.2); CREATININE SERUM 1.4 mg/dL (0.6-1.4); GLOM FILT RATE Estimated 40.6 mL/min (>60); POTASSIUM 3.2 mmol/L (3.5-5.1)
[2016-11-18 06:36] LABS: HEMATOCRIT 27.2 % (35.0-45.0); HEMOGLOBIN 9.2 gm/dL (12.0-16.0); MEAN CELL VOLUME 87.8 FL (83-96); MEAN CORPUSCULAR HEMOGLOBIN 29.8 PG (28-34); MEAN CORPUSCULAR HGB CONC 33.9 g/dL (30-36); RED BLOOD COUNT 3.1 X10e (3.90-5.30)
[2016-11-18 07:01] LABS: CALCIUM SERUM 8.6 mg/dL (8.4-10.2); CREATININE SERUM 1.4 mg/dL (0.6-1.4); GLOM FILT RATE Estimated 40.6 mL/min (>60); POTASSIUM 3.6 mmol/L (3.5-5.1)
[2016-11-19 06:07] LABS: HEMATOCRIT 26.7 % (35.0-45.0); MEAN CELL VOLUME 88.8 FL (83-96); MEAN CORPUSCULAR HEMOGLOBIN 29.8 PG (28-34); MEAN CORPUSCULAR HGB CONC 33.6 g/dL (30-36); RED BLOOD COUNT 3.01 X10e (3.90-5.30); RED CELL DISTRIBUTION WIDTH 12.6 % (11.0-15.5); WHITE BLOOD COUNT 16.1 X10e3 (4.0-10.5)
[2016-11-19 08:14] LABS: BUN/CREATININE RATIO 29.28; CALCIUM SERUM 8.5 mg/dL (8.4-10.2); CREATININE SERUM 1.4 mg/dL (0.6-1.4); GLOM FILT RATE Estimated 40.6 mL/min (>60); POTASSIUM 3.6 mmol/L (3.5-5.1)
[2016-11-20 06:21] LABS: HEMATOCRIT 27.3 % (35.0-45.0); MEAN CELL VOLUME 89.4 FL (83-96); MEAN CORPUSCULAR HEMOGLOBIN 29.6 PG (28-34); MEAN CORPUSCULAR HGB CONC 33.1 g/dL (30-36); MEAN PLATELET VOLUME 7.6 FL (6.5-11.5); RED BLOOD COUNT 3.05 X10e (3.90-5.30); RED CELL DISTRIBUTION WIDTH 12.8 % (11.0-15.5); WHITE BLOOD COUNT 13.8 X10e3 (4.0-10.5)
[2016-11-20 07:03] LABS: BUN/CREATININE RATIO 35.45; CALCIUM SERUM 8.5 mg/dL (8.4-10.2); CREATININE SERUM 1.1 mg/dL (0.6-1.4); GLOM FILT RATE Estimated 53.7 mL/min (>60); MAGNESIUM 1.8 mg/dL (1.6-3.0); POTASSIUM 4.1 mmol/L (3.5-5.1)
[2016-11-21 05:57] LABS: HEMATOCRIT 26.5 % (35.0-45.0); HEMOGLOBIN 8.7 gm/dL (12.0-16.0); MEAN CELL VOLUME 90.4 FL (83-96); MEAN CORPUSCULAR HEMOGLOBIN 29.6 PG (28-34); MEAN CORPUSCULAR HGB CONC 32.8 g/dL (30-36); MEAN PLATELET VOLUME 8.1 FL (6.5-11.5); RED BLOOD COUNT 2.93 X10e (3.90-5.30); RED CELL DISTRIBUTION WIDTH 13.2 % (11.0-15.5); WHITE BLOOD COUNT 13.8 X10e3 (4.0-10.5)
[2016-11-21 06:36] LABS: BUN/CREATININE RATIO 32.5; CALCIUM SERUM 8.4 mg/dL (8.4-10.2); CREATININE SERUM 1.2 mg/dL (0.6-1.4); GLOM FILT RATE Estimated 48.5 mL/min (>60)
[2016-11-22 08:29] LABS: HEMATOCRIT 28.9 % (35.0-45.0); HEMOGLOBIN 9.3 gm/dL (12.0-16.0); MEAN CELL VOLUME 90.5 FL (83-96); MEAN CORPUSCULAR HEMOGLOBIN 29.1 PG (28-34); MEAN CORPUSCULAR HGB CONC 32.2 g/dL (30-36); MEAN PLATELET VOLUME 8.2 FL (6.5-11.5); RED BLOOD COUNT 3.2 X10e (3.90-5.30); RED CELL DISTRIBUTION WIDTH 13.3 % (11.0-15.5); WHITE BLOOD COUNT 19.6 X10e3 (4.0-10.5)
[2016-11-22 09:06] LABS: CALCIUM SERUM 9.2 mg/dL (8.4-10.2); CREATININE SERUM 1.5 mg/dL (0.6-1.4); GLOM FILT RATE Estimated 37.5 mL/min (>60); POTASSIUM 4.5 mmol/L (3.5-5.1)
[2016-11-23 07:02] LABS: HEMATOCRIT 26.4 % (35.0-45.0); HEMOGLOBIN 8.6 gm/dL (12.0-16.0); MEAN CELL VOLUME 89.8 FL (83-96); MEAN CORPUSCULAR HEMOGLOBIN 29.3 PG (28-34); MEAN CORPUSCULAR HGB CONC 32.6 g/dL (30-36); MEAN PLATELET VOLUME 7.8 FL (6.5-11.5); RED BLOOD COUNT 2.94 X10e (3.90-5.30); RED CELL DISTRIBUTION WIDTH 13.1 % (11.0-15.5)
[2016-11-23 07:27] LABS: CALCIUM SERUM 8.8 mg/dL (8.4-10.2); GLOM FILT RATE Estimated 59.9 mL/min (>60); POTASSIUM 3.9 mmol/L (3.5-5.1)
[2016-11-24 07:32] LABS: HEMATOCRIT 25.8 % (35.0-45.0); HEMOGLOBIN 8.5 gm/dL (12.0-16.0); MEAN CELL VOLUME 90.2 FL (83-96); MEAN CORPUSCULAR HEMOGLOBIN 29.8 PG (28-34); MEAN CORPUSCULAR HGB CONC 33.1 g/dL (30-36); MEAN PLATELET VOLUME 7.7 FL (6.5-11.5); RED BLOOD COUNT 2.86 X10e (3.90-5.30); RED CELL DISTRIBUTION WIDTH 13.1 % (11.0-15.5); WHITE BLOOD COUNT 14.1 X10e3 (4.0-10.5)
[2016-11-24 08:11] LABS: CALCIUM SERUM 8.8 mg/dL (8.4-10.2); GLOM FILT RATE Estimated 59.9 mL/min (>60)
[2016-11-25 09:15] LABS: BASOPHIL# 0.1 X10e3 (0-0.3); BASOPHIL% 0.7 % (0-2.5); EOSINOPHIL# 0.4 X10e3 (0-0.7); EOSINOPHIL% 2.2 % (0.0-7.0); HEMATOCRIT 30.3 % (35.0-45.0); LYMPHOCYTE# 2.7 X10e3 (1.0-3.5); LYMPHOCYTE% 15.6 % (17.0-45.0); MEAN CORPUSCULAR HEMOGLOBIN 29.6 PG (28-34); MEAN CORPUSCULAR HGB CONC 32.9 g/dL (30-36); MEAN PLATELET VOLUME 8.1 FL (6.5-11.5); MONOCYTE# 1.3 X10e3 (0-1.0); MONOCYTE% 7.8 % (3.0-12.0); NEUTROPHIL# 12.6 X10e3 (1.5-7.1); NEUTROPHIL% 73.7 % (40-75); PLATELET COUNT 509 X10e3 (140-420); RED BLOOD COUNT 3.36 X10e (3.90-5.30); RED CELL DISTRIBUTION WIDTH 13.4 % (11.0-15.5); WHITE BLOOD COUNT 17.1 X10e3 (4.0-10.5)
[2016-11-25 09:19] LABS: DIFF IND YES
[2016-11-25 09:40] LABS: BUN/CREATININE RATIO 34.44; CALCIUM SERUM 9.4 mg/dL (8.4-10.2); CREATININE SERUM 0.9 mg/dL (0.6-1.4); GLOM FILT RATE Estimated 69.1 mL/min (>60); MAGNESIUM 1.9 mg/dL (1.6-3.0); POTASSIUM 4.8 mmol/L (3.5-5.1)
[2016-11-25 10:06] LABS: ANISOCYTOSIS SL; PLATELET ESTIMATE INCREASED (NORMAL)
[2016-11-26 06:27] LABS: HEMATOCRIT 26.6 % (35.0-45.0); HEMOGLOBIN 8.6 gm/dL (12.0-16.0); MEAN CELL VOLUME 90.5 FL (83-96); MEAN CORPUSCULAR HEMOGLOBIN 29.2 PG (28-34); MEAN CORPUSCULAR HGB CONC 32.3 g/dL (30-36); RED BLOOD COUNT 2.94 X10e (3.90-5.30); RED CELL DISTRIBUTION WIDTH 12.9 % (11.0-15.5); WHITE BLOOD COUNT 20.6 X10e3 (4.0-10.5)
[2016-11-26 07:06] LABS: BUN/CREATININE RATIO 23.33; CALCIUM SERUM 8.6 mg/dL (8.4-10.2); CREATININE SERUM 1.2 mg/dL (0.6-1.4); GLOM FILT RATE Estimated 48.7 mL/min (>60); POTASSIUM 4.3 mmol/L (3.5-5.1)
[2016-11-27 06:08] LABS: HEMATOCRIT 25.4 % (35.0-45.0); HEMOGLOBIN 8.3 gm/dL (12.0-16.0); MEAN CELL VOLUME 90.7 FL (83-96); MEAN CORPUSCULAR HEMOGLOBIN 29.6 PG (28-34); MEAN CORPUSCULAR HGB CONC 32.7 g/dL (30-36); MEAN PLATELET VOLUME 7.8 FL (6.5-11.5); RED BLOOD COUNT 2.8 X10e (3.90-5.30); RED CELL DISTRIBUTION WIDTH 13.3 % (11.0-15.5)
[2016-11-27 06:58] LABS: BUN/CREATININE RATIO 29.09; CALCIUM SERUM 8.2 mg/dL (8.4-10.2); CREATININE SERUM 1.1 mg/dL (0.6-1.4); GLOM FILT RATE Estimated 54.2 mL/min (>60); POTASSIUM 4.4 mmol/L (3.5-5.1)
[2016-11-27] MEDS ORDERED: PHENERGAN25 M1 PO (14:57)
[2016-11-27] MEDS ORDERED: NORCO1 TAB 10/3 PO (15:00)
[2016-11-27] MEDS ORDERED: LIPITOR20 MG PO (15:04)
[2016-11-27] MEDS ORDERED: ASPIRIN81 MG PO (15:09)
== END 2016-11-27 16:52 | disposition home health service (06) | DRG 240 ==
LOC: CED 04:15 → CEDOF 07:10 → C3A PCU 10:34
PROVIDERS: Internal Medicine; Nurse Practitioner; Nurse Practitioner Family; Orthopaedic Surgery; Student in an Organized Health Care Education/Training Program
PROC: 0Y6N0ZD Detachment at Left Foot, Partial 4th Ray, Open Approach (ICD-10-PCS; principal; 2016-11-16 13:00)
PROC: 02HV33Z Insertion of Infusion Device into Superior Vena Cava, Percutaneous Approach (ICD-10-PCS; 2016-11-17)
PROC: B548ZZA Ultrasonography of Superior Vena Cava, Guidance (ICD-10-PCS; 2016-11-17)
PROC: 0HQNXZZ Repair Left Foot Skin, External Approach (ICD-10-PCS; 2016-11-25)
PROC: 0Y6N0ZC Detachment at Left Foot, Partial 3rd Ray, Open Approach (ICD-10-PCS; 2016-11-25 12:30)
DX: E11.52 Type 2 diabetes mellitus with diabetic peripheral angiopathy with gangrene (principal); I16.9 Hypertensive crisis, unspecified; I47.2 Ventricular tachycardia; N17.9 Acute kidney failure, unspecified; I50.32 Chronic diastolic (congestive) heart failure; E11.40 Type 2 diabetes mellitus with diabetic neuropathy, unspecified; L08.89 Other specified local infections of the skin and subcutaneous tissue; I10 Essential (primary) hypertension; E66.9 Obesity, unspecified; Z91.14 Patient's other noncompliance with medication regimen; E11.65 Type 2 diabetes mellitus with hyperglycemia; Z79.4 Long term (current) use of insulin; I87.8 Other specified disorders of veins; E87.6 Hypokalemia; D64.9 Anemia, unspecified; I49.3 Ventricular premature depolarization
CPT/HCPCS: 36415; 73630; 76937; 77001; 80048; 80061; 81003; 82947; 83036; 83605; 83735; 84132; 84484; 85025; 85027; 85610; 85730; 86140; 87040; 87070; 87075; 87076; 87077; 87086; 87186; 87205; 88305; 88311; 93005; 96365; 96367; 96375; 97110; 97116; 97162; 97530; 97535; 99285; C1751; G8978-GP; G8979-GP; J0360; J0696; J1650; J1815; J2250; J2270; J2405; J2543; J2997; J3010; J3370; J3475; J3480

== ENCOUNTER 2017-01-03 10:37 | Emergency (ER) | payer OTHER ==
--- NOTE | ~2017-01-03 | CT16 ---
[facility] A Service of [facility] RADIOLOGY TEXT RESULTS PATIENT: DONNIE RILEY LOCATION: [facility] : 55 UNIT #: [id number] AGE: [address]: Elias Rodriguez MD SEX: F ORDER DR: [id number] [facility] [address]. [place], [place] [address] [id number] E MR#: [id number] Acc #: [id number] NAME: DONNIE RILEY : 1955 SEX: F STUDY DATE/TIME: 01/03/2017 13:10 UNIT: [facility] ROOM: STUDY DESCRIPTION: CT Angio Chest for PE Attending Physician: Elias Rodriguez M.D. Ordering Physician: Elias Rodriguez M.D. Primary Care Physician: Alanis Perez Aprn MEDICAL IMAGING REPORT This report is preliminary unless electronic signature is present EXAM Chest CT angiogram with contrast 01/03/2017 PROCEDURE Axial contrast-enhanced chest CT angiogram with three-dimensional reformats. This CT examination was performed with one or more of the following radiation dose reduction techniques: automatic exposure control, adjustment of mA and/or kV according to patient size, and iterative reconstruction. COMPARISON None. FINDINGS There are large bilateral pleural effusions with compressive atelectasis. There is no other consolidation. There is no mass. Bolus timing is good and there is no evidence of pulmonary embolism. The thoracic aorta is normal in caliber. Images of the upper abdomen are unremarkable. IMPRESSION 1. Large bilateral pleural effusions with compressive atelectasis, but no evidence of pulmonary embolism. Good bolus timing. Normal thoracic aorta. 2. No other acute abnormality is seen. There is no infiltrate in any of the non-atelectatic lung and there is no suspicious pulmonary nodule. Dictated by... Watson Moraes M.D. [facility] A Service [facility] RADIOLOGY TEXT RESULTS PATIENT: DONNIE RILEY LOCATION: [facility] : 55 UNIT #: [id number] AGE: [address]: Elias Rodriguez MD SEX: F ORDER DR: THIS IS AN ELECTRONICALLY VERIFIED REPORT Watson Moraes M.D. at 01/10/2017 10:45 AM ARIAN/fara TD: 01/03/2017 14:15 JOB #: [id number] MEDICAL IMAGING REPORT Page 1 of 1 COPY
--- NOTE | ~2017-01-03 | EKG ---
PATIENT: DONNIE RILEY UNIT #: [id number] Ventricular Rate: 98 BPM Atrial Rate: 98 BPM P-R Interval: 164 ms QRS Duration: 94 ms Q-T Interval: 372 ms QTC Calculation(Bezet): 474 ms P [place]: 51 degrees Calculated R [place]: 42 degrees Calculated T [place]: 109 degrees Diagnosis Line: Normal sinus rhythm Diagnosis Line: T wave abnormality, consider lateral ischemia Diagnosis Line: Prolonged QT Diagnosis Line: Abnormal ECG Diagnosis Line: When compared with ECG of 26-NOV-2016 06:34, Diagnosis Line: Vent. rate has increased BY 42 BPM Diagnosis Line: QT has lengthened Diagnosis Line: Confirmed by LYNN GUERRERO MD ([id number]) on Diagnosis Line: 01/04/2017 4:33:17 PM INTERPRETING MD: YOLANDA CHU
--- NOTE | ~2017-01-03 | CR72 ---
[facility] A Service of [facility] RADIOLOGY TEXT RESULTS PATIENT: DONNIE RILEY LOCATION: [facility] : 55 UNIT #: [id number] AGE: [address]: Elias Rodriguez MD SEX: F ORDER DR: [id number] [facility] [address] [place], [place] [address] [id number] E MR#: [id number] Acc #: [id number] NAME: DONNIE RILEY : 1955 SEX: F STUDY DATE/TIME: 01/03/2017 10:53 UNIT: [facility] ROOM: STUDY DESCRIPTION: CR Chest Single View Portable Attending Physician: Elias Rodriguez M.D. Ordering Physician: Elias Rodriguez M.D. Primary Care Physician: Alanis Perez Aprn MEDICAL IMAGING REPORT This report is preliminary unless electronic signature is present EXAM Portable chest, 1 view, 01/03/2017. COMPARISON 09/01/2016 CLINICAL HISTORY Short of air for 1 day. FINDING Low lung volumes. Heart size upper limits of normal. Vascular congestion and probable tiny bilateral effusions. Question congestive heart failure and/or hypervolemia. No pneumothorax. No large area of dense consolidation. Dictated by... Watson Moraes M.D. THIS IS AN ELECTRONICALLY VERIFIED REPORT Watson Moraes M.D. at 01/10/2017 10:44 AM ARIAN/qi TD: 01/03/2017 11:32 JOB #: [id number] MEDICAL IMAGING REPORT Page 1 of 1 COPY
[~2017-01-03 10:37] MED LIST changes: +ASPIRIN81 MG PO; +LIPITOR20 MG PO; +NORCO1 TAB 10/3 PO; +PHENERGAN25 M1 PO
[2017-01-03] MEDS ORDERED: METFORMIN PO (10:46)
[2017-01-03] MEDS ORDERED: LISINOPRIL20 MG PO (10:47)
[2017-01-03] MEDS ORDERED: ALDACTONE25 MG PO (10:47)
[2017-01-03] MEDS ORDERED: NORVASC10 MG PO (10:47)
[2017-01-03] MEDS ORDERED: LIPITOR20 MG PO (10:47)
[2017-01-03] MEDS ORDERED: LASIX PO (10:47)
[2017-01-03] MEDS ORDERED: HYDRALAZINE HCL50 MG PO (10:48)
[2017-01-03] MEDS ORDERED: ASPIRIN81 MG PO (10:52)
[2017-01-03 10:54] LABS: BASOPHIL# 0.1 X10e3 (0-0.3); BASOPHIL% 0.9 % (0-2.5); EOSINOPHIL# 0.6 X10e3 (0-0.7); EOSINOPHIL% 5.8 % (0.0-7.0); HEMATOCRIT 33.2 % (35.0-45.0); HEMOGLOBIN 11.1 gm/dL (12.0-16.0); LYMPHOCYTE# 1.5 X10e3 (1.0-3.5); LYMPHOCYTE% 13.8 % (17.0-45.0); MEAN CELL VOLUME 92.7 FL (83-96); MEAN CORPUSCULAR HGB CONC 33.4 g/dL (30-36); MEAN PLATELET VOLUME 6.9 FL (6.5-11.5); MONOCYTE# 0.6 X10e3 (0-1.0); MONOCYTE% 5.4 % (3.0-12.0); NEUTROPHIL# 8.2 X10e3 (1.5-7.1); NEUTROPHIL% 74.1 % (40-75); PLATELET COUNT 312 X10e3 (140-420); RED BLOOD COUNT 3.58 X10e (3.90-5.30); RED CELL DISTRIBUTION WIDTH 14.4 % (11.0-15.5)
[2017-01-03 10:54] LABS: POC - CKMB 3.8 ng/mL (0.0-7.9); POC - TROPONIN <0.05 ng/mL (<=0.05)
[2017-01-03 10:56] LABS: DIFF IND NO
[2017-01-03 11:07] LABS: PARTIAL THROMBOPLASTIN TIME 24.8 SECONDS (23.5-31.3)
[2017-01-03 12:13] LABS: ALBUMIN SERUM 3.2 g/dL (3.5-5.0); BILIRUBIN, DIRECT 0.1 mg/dL (0.0-0.2); BILIRUBIN,INDIRECT 0.7 mg/dL (0.0-0.9); BILIRUBIN,TOTAL 0.8 mg/dL (0.2-2.0); BUN/CREATININE RATIO 43.33; CREATININE SERUM 0.6 mg/dL (0.6-1.4); GLOM FILT RATE Estimated 98.4 mL/min (>60); POTASSIUM 3.7 mmol/L (3.5-5.1); PROTEIN TOTAL SERUM 6.3 g/dL (6.0-8.3)
[2017-01-03 12:17] LABS: POC - CKMB 2.3 ng/mL (0.0-7.9); POC - TROPONIN <0.05 ng/mL (<=0.05)
== END 2017-01-03 16:45 | disposition home or self-care (01) ==
LOC: CED 10:37
PROVIDERS: Emergency Medicine
DX: J90 Pleural effusion, not elsewhere classified (principal); E11.9 Type 2 diabetes mellitus without complications; I10 Essential (primary) hypertension; I50.9 Heart failure, unspecified; J44.9 Chronic obstructive pulmonary disease, unspecified; Z90.49 Acquired absence of other specified parts of digestive tract; Z98.890 Other specified postprocedural states
CPT/HCPCS: 36415; 71010; 71275; 80048; 80076; 82150; 82553; 83605; 83690; 84484; 85025; 85610; 85730; 87040; 93005; 99284; Q9967

== ENCOUNTER 2017-01-04 02:37 | Inpatient (IN) | payer OTHER ==
--- NOTE | ~2017-01-04 | DS ---
Unit #: [id number] #: [id number] Patient: DONNIE RILEY [id number] [address] [address] [id number] I MR#: [id number] NAME: DONNIE RILEY ROOM: 572 Age: 61 Sex: F Admission Date: 01/04/2017 : 1955 Discharge Date: Attending Physician: Fatuma Almazan M.D. Primary Care Physician: Alanis Perez Aprn DISCHARGE SUMMARY DISCHARGE DIAGNOSES 1. Angina, status post cardiac cath and stent placed. 2. Acute diastolic heart failure and chronic diastolic heart failure. 3. Bilateral pleural effusion, status post thoracentesis. 4. Diabetes mellitus type 2, uncontrolled. 5. Hypertension, uncontrolled. 6. Anemia secondary to chronic iron deficiency. 7. Constipation. 8. Severe nausea secondary to Brilinta. 9. Leukocytosis, no signs of infection. 10. Moderate protein malnutrition. CONSULTANTS Dr. Zacarias PROCEDURES 1. Patient had a cardiac cath. 2. Thoracentesis. DIAGNOSTIC STUDIES LABORATORY DATA: Glucose 243. Sodium 137, potassium 4.1, creatinine 1.2. (1) normal. Albumin 2.5. Urinalysis - no signs of infection. WBC 12.1, hemoglobin 9.3, platelets 251. Pleural cultures negative. Blood cultures negative. IMAGING STUDIES: Chest x-ray shows mild bilateral tiny pleural effusions no active disease. CT angio of chest shows large bilateral pleural effusion. ALLERGIES None. DISCHARGE MEDICATIONS 1. Metformin 1,000 p.o. b.i.d. 2. Atorvastatin 80 mg p.o. daily. 3. Coreg 12.5 mg p.o. b.i.d. 4. Lasix 40 p.o. daily. 5. Hydralazine 50 two times daily. 6. Lisinopril 20 p.o. b.i.d. 7. Aspirin 81 daily. 8. Plavix 75 daily. 9. Spironolactone 12.5 p.o. daily. Unit #: [id number] #: [id number] Patient: DONNIE RILEY 10. Nitroglycerin 0.4 sublingual p.r.n. chest pain. HOSPITAL COURSE 61-year-old admitted because of chest pain. Angina pectoris: The patient is seen by Dr. Zacarias. Patient had a cardiac cath x2. The second time the patient had a stent placed, currently no pain. Patient Troponins is not elevated. Currently pain is better. Patient will follow Dr. Zacarias as an outpatient. Acute on chronic diastolic heart failure: Patient received diuretics currently compensated. Bilateral pleural effusion, likely secondary to congestive heart failure: Patient had pleural tap, culture negative. Patient is seen by pulmonary. Repeat chest x-ray shows mild pleural effusion. Severe nausea during the hospitalization course secondary to the Brilinta. Patient could not tolerate it so it has been discontinued and Plavix has been added by cardiology. Diabetes mellitus type 2, uncontrolled: Patient received insulin during the hospitalization course. Patient will go back on her metformin. Hypertension, uncontrolled: I just started her on blood pressure pills. Moderate protein malnutrition: Continue with high protein diet. Discuss with cardiology, okay to discharge the patient home. Follow with family physician in one week time. Follow with Dr. Zacarias as advised and patient will have cardiac rehab consult upon discharge. Discharge time taken is 31 minutes. Dictated by... Elida Bains TD: 01/13/2017 13:14 JOB #: [id number] DISCHARGE SUMMARY Page 1 of 1 X Fatuma Almazan MD X DISCHARGE SUMMARY
--- NOTE | ~2017-01-04 | CO ---
Unit #: [id number] #: [id number] Patient: DONNIE RILEY [id number] [address] [place], [place] [address] [id number] I MR#: [id number] NAME: DONNIE RILEY ROOM: 572 Age: 61 Sex: F Admission Date: 01/04/2017 : 1955 Attending Physician: Fatuma Almazan M.D. Primary Care Physician: Alanis Perez Aprn Consultation Date: 01/04/2017 CONSULTATION REPORT REASON FOR CONSULT Chest pain. HISTORY OF PRESENT ILLNESS This is a pleasant 61-year-old female with a known past medical significant for diastolic congestive heart failure, hypertension, diabetes mellitus, peripheral vascular disease. The patient reports she was in her typical state of health until about a week ago when she began to notice shortness of breath with exertion and intermittent episodes of mid sternal chest pain with some radiation into her back. She also reports some increasing lower extremity edema. On arrival to the emergency room, the patient was found to have a blood pressure of 195/105, a chest x-ray showing worsening congestive heart failure. CTA was negative for PE but did show large bilateral pleural effusions and compressive atelectasis. In the emergency room, she was treated with aspirin, IV Lasix and 0.1 mg of clonidine with improvement of her blood pressure. The patient denies any complaints of palpitations, syncope, near syncope, TIA or stroke. She does have poorly controlled diabetes mellitus and a history of amputation to two toes on her left foot. She is a nonsmoker. The patient did undergo stress testing she thinks [facility] showing EF of 50% with small distal anterior apical wall ischemia. Her last echocardiogram was done 08/2006 which shows an EF of 60% with mild MR and TR grade one diastolic dysfunction as noted. At present, she is chest pain free. Her initial EKG shows normal sinus rhythm, rate of 98 beats per minute. Nonspecific T wave abnormality is noted in the lateral leads. QTC interval 450 msec. Cardiac enzymes have been negative. PAST MEDICAL HISTORY 1. Diastolic congestive heart failure. Echo, 08/2016, EF of 60% with mild MR and TR. Grade 1 LV diastolic dysfunction is noted. 2. Lexiscan Cardiolite at [facility]. Ejection fraction of 50% with small distal anterior apical wall ischemia. 3. Hypertension. 4. Diabetes mellitus poorly controlled. 5. Peripheral vascular disease. PAST SURGICAL HISTORY 1. Amputation of her toes, left foot. 2. Cholecystectomy. 3. Tonsillectomy. 4. . SOCIAL HISTORY Unit #: [id number] #: [id number] Patient: DONNIE RILEY The patient lives in a private residence with her and child. She is a lifelong nonsmoker. She denies any illicit drugs or alcohol use. FAMILY HISTORY Positive for RI in her father, at age 71. ALLERGIES No known drug allergies. HOME MEDICATIONS 1. Glucophage 1,000 mg p.o. b.i.d. 2. Lasix 40 mg p.o. daily. 3. Norvasc 10 mg p.o. daily. 4. Lisinopril 20 mg p.o. b.i.d. 5. Aldactone 25 mg p.o. daily. 6. Lipitor 20 mg p.o. q.h.s. 7. Hydralazine 50 mg p.o. t.i.d. 8. Aspirin 81 mg p.o. daily. REVIEW OF SYSTEMS Positive for shortness of breath, chest pain as stated above. Otherwise, all systems were negative. PHYSICAL EXAMINATION GENERAL APPEARANCE: This is a pleasant 61-year-old female currently in no acute distress. VITAL SIGNS: Temperature 97.8. Respiratory rate 18. Blood pressure 158/72. Pulse 106. HEENT: Pupils are equal, round and reactive to light. Pharynx is benign. NECK: Supple. No carotid bruits. Trachea is midline. No JVD. CHEST: Clear to auscultation anterior. Fine rales bibasilar. CARDIOVASCULAR: S1, S2. S4 is present. No murmur. ABDOMEN: Soft, nontender, nondistended. Liver is palpable 6 to 8 cm below the right costal margin. EXTREMITIES: Mild edema bilaterally. A dressing is present. NEUROLOGIC: She is awake, alert and oriented. She is able to move all extremities without difficulty, follows commands with ease. DIAGNOSTIC STUDIES LABORATORY: Glucose 346, BUN 27, creatinine 0.8, sodium 134, potassium 4.0, chloride 105, CO2 23. Troponins have been 0.05 x2. BNP 358. Coags are within normal limits. Hemoglobin 10.8, hematocrit 33.1, WBC 11.8, platelet count 307. Preliminary blood cultures show no growth. IMAGING: Chest x-ray shows increased heart size suggestive of congestive heart failure. CT angio of the chest shows large bilateral pleural effusions with compressive atelectasis. No mass. No evidence of PE. CARDIOVASCULAR: EKG shows normal sinus rhythm, rate of 98 beats per minute. Nonspecific T wave abnormality is noted in the lateral leads. QTC interval 454 msec. No acute ischemic changes noted. ASSESSMENT 1. Acute on chronic diastolic heart failure. 2. Angina pectoris. 3. Hypertension. 4. Insulin-dependent diabetes mellitus poorly controlled. 5. Peripheral arterial disease. Unit #: [id number] #: [id number] Patient: DONNIE RILEY PLAN The patient has been admitted. We will add nonselective beta blockers with carvedilol 6.25 mg p.o. b.i.d. First dose now. She will continue with diuretics, Lasix, b.i.d. Her aspirin will be decreased to 81 mg p.o. daily and nitro paste will be applied a half inch topical b.i.d. Her statin dose will be increased to 40 mg p.o. daily and her blood pressure medications will be adjusted. We will also check blood pressures supine and standing. The patient does have risk factors for coronary artery disease and would recommend proceeding with cardiac catheterization to rule out underlying atherosclerotic heart disease. This procedure has been explained to the patient and she is agreeable to proceed. We will tentatively plan on cardiac catheterization within the next few days. We will continue to follow her electrolytes, blood pressure, etc. The patient, however, due to the size of her pleural effusions, may need thoracentesis prior to undergoing cardiac catheterization. Further recommendations pending Pulmonary's assessment. Dictated by... Odette Longo A.P.R.N. for Elida Ng/phillip TD: 01/06/2017 06:20 JOB #: [id number] CONSULTATION REPORT Page 1 of 1 X Odette Longo APRN X CONSULTATION REPORT
--- NOTE | ~2017-01-04 | EKG ---
PATIENT: DONNIE RILEY UNIT #: [id number] Ventricular Rate: 64 BPM Atrial Rate: 64 BPM P-R Interval: 178 ms QRS Duration: 100 ms Q-T Interval: 438 ms QTC Calculation(Bezet): 451 ms P [place]: 47 degrees Calculated R [place]: 36 degrees Calculated T [place]: 113 degrees Diagnosis Line: Normal sinus rhythm Diagnosis Line: T wave abnormality, consider lateral ischemia Diagnosis Line: Abnormal ECG Diagnosis Line: When compared with ECG of 10-JAN-2017 10:05, Diagnosis Line: No significant change was found Diagnosis Line: Confirmed by JOSE VALDEZ MD ([id number]) on 01/11/2017 Diagnosis Line: 10:41:38 PM INTERPRETING MD: COURTNEY CHU
--- NOTE | ~2017-01-04 | CR72 ---
[facility] A Service of [facility] RADIOLOGY TEXT RESULTS PATIENT: DONNIE RILEY LOCATION: [facility] 572-01 : 55 UNIT #: [id number] AGE: [address]: Fatuma Almazan MD SEX: F ORDER DR: [id number] [facility] [address] [facility]. [place], [place] [address] [id number] MR#: [id number] #: [id number] NAME: DONNIE RILEY : 1955 SEX: F STUDY DATE/TIME: 01/04/2017 3:04 UNIT: [facility] ROOM: STUDY DESCRIPTION: CR Chest Single View Portable Attending Physician: Alice Aparicio M.D. Ordering Physician: Alice Aparicio M.D. Primary Care Physician: Alanis Perez Aprn MEDICAL IMAGING REPORT This report is preliminary unless electronic signature is present EXAM AP portable chest, 01/04/2017 HISTORY Chest pain and shortness of breath for 2 days. Diabetes. Hypertension. COMPARISON AP portable chest, 01/03/2017. FINDINGS There is moderate cardiac enlargement. Small bilateral pleural effusions are present. There is central vascular congestive change and increasing interstitial and alveolar opacities predominantly in the central lung zones, thought to represent evolving pulmonary edema. Suspected mild bibasilar atelectasis. No pneumothorax. Surgical changes within the upper abdomen. IMPRESSION 1. Constellation of findings suggests worsening central vascular congestion and interstitial and alveolar edema compared to yesterday's study. Small, layering bilateral pleural effusions are present. Probable mild bibasilar atelectasis. Dictated by... Sun Hendrickson M.D. THIS IS AN ELECTRONICALLY VERIFIED REPORT Sun Hendrickson M.D. at 01/04/2017 9:58 PM [facility]/raz TD: 01/04/2017 04:12 JOB #: [id number] [facility] A Service of [facility] RADIOLOGY TEXT RESULTS PATIENT: DONNIE RILEY [facility]ATION[id number] 55 UNIT #: [id number] AGE: [address]: Fatuma Almazan MD SEX: F ORDER DR: MEDICAL IMAGING REPORT Page 1 of 1 COPY
--- NOTE | ~2017-01-04 | EKG ---
PATIENT: DONNIE RILEY UNIT #: [id number] Ventricular Rate: 76 BPM Atrial Rate: 76 BPM P-R Interval: 158 ms QRS Duration: 98 ms Q-T Interval: 394 ms QTC Calculation(Bezet): 443 ms P [place]: 39 degrees Calculated R [place]: 11 degrees Calculated T [place]: 126 degrees Diagnosis Line: Normal sinus rhythm Diagnosis Line: T wave abnormality, consider lateral ischemia Diagnosis Line: Abnormal ECG Diagnosis Line: When compared with ECG of 04-JAN-2017 02:42, Diagnosis Line: No significant change was found Diagnosis Line: Confirmed by MING MORALES MD ([id number]) on Diagnosis Line: 01/05/2017 3:39:51 PM INTERPRETING MD: JEAN-PIERRE
--- NOTE | ~2017-01-04 | CR63 ---
[facility] A Service of [facility] RADIOLOGY TEXT RESULTS PATIENT: DONNIE RILEY LOCATION: [facility] 572-01 : 55 UNIT #: [id number] AGE: [address]: Fatuma Almazan MD SEX: F ORDER DR: [id number] [facility] [address] [facility]. [place], [place] [address] [id number] I MR#: [id number] Acc #: [id number] NAME: DONNIE RILEY : 1955 SEX: F STUDY DATE/TIME: 01/12/2017 16:27 UNIT: [facility] ROOM: 2 STUDY DESCRIPTION: CR Chest 2 View Attending Physician: Fatuma Almazan M.D. Ordering Physician: Fatuma Almazan M.D. Primary Care Physician: Alanis Perez Aprn MEDICAL IMAGING REPORT This report is preliminary unless electronic signature is present EXAM PA and lateral chest, 2 views, 01/12/17 HISTORY Elevated white blood cell count, cough and fever since 01/04/17 COMPARISON STUDIES 01/04/17 FINDINGS PA and lateral view of the chest were obtained. Tiny bilateral effusions are present. The heart size and vascularity are normal. The lungs are clear. The bones are normal. IMPRESSION There are tiny bilateral effusions. There is no active disease. Dictated by... Clayton Galindo M.D. THIS IS AN ELECTRONICALLY VERIFIED REPORT Clayton Galindo M.D. at 01/13/2017 7:14 AM RICK/chevy TD: 01/12/2017 19:36 JOB #: [id number] MEDICAL IMAGING REPORT Page 1 of 1 COPY
--- NOTE | ~2017-01-04 | EKG ---
PATIENT: DONNIE RILEY UNIT #: [id number] Ventricular Rate: 80 BPM Atrial Rate: 80 BPM P-R Interval: 178 ms QRS Duration: 96 ms Q-T Interval: 390 ms QTC Calculation(Bezet): 449 ms P [place]: 58 degrees Calculated R [place]: 47 degrees Calculated T [place]: 117 degrees Diagnosis Line: Normal sinus rhythm Diagnosis Line: T wave abnormality, consider lateral ischemia Diagnosis Line: Abnormal ECG Diagnosis Line: When compared with ECG of 05-JAN-2017 07:51, Diagnosis Line: No significant change was found Diagnosis Line: Confirmed by JOSE VALDEZ MD ([id number]) on 01/06/2017 Diagnosis Line: 8:32:24 AM INTERPRETING MD: COURTNEY CHU
--- NOTE | ~2017-01-04 | CR71 ---
[facility] A Service of [facility] RADIOLOGY TEXT RESULTS PATIENT: DONNIE RILEY LOCATION: [facility] : 55 UNIT #: [id number] AGE: [address]: Fatuma Almazan MD SEX: F ORDER DR: [id number] [facility] [address]. [place], [place] [address] [id number] I MR#: [id number] Acc #: [id number] NAME: DONNIE RILEY : 1955 SEX: F STUDY DATE/TIME: 01/04/2017 15:37 UNIT: [facility] ROOM: [facility] STUDY DESCRIPTION: CR Chest Single View Attending Physician: Fatuma Almazan M.D. Ordering Physician: Sena Clement M.D. Primary Care Physician: Alanis Perez Aprn MEDICAL IMAGING REPORT This report is preliminary unless electronic signature is present EXAM AP radiograph of the chest 01/04/2017 HISTORY Post thoracentesis. FINDINGS AP radiograph of the chest is presented. Comparison 01/04/2017 at 03:04 hours. Stable cardiac enlargement. Status post right thoracentesis. No pneumothorax. Small left pleural effusion unchanged. Pulmonary vasculature abnormally prominent. More distinct than on the prior examination with decreased but not yet resolved diffuse interstitial prominence. The appearance suggests improved interstitial edema and vascular congestion. Continued airspace disease left retrocardiac region not significantly changed and probably representing combination of airspace edema and atelectasis. No significant residual right pleural effusion. Surgical clips upper abdomen. No acute-appearing bony abnormality. Dictated by... Carson Putnam M.D. THIS IS AN ELECTRONICALLY VERIFIED REPORT Carson Putnam M.D. at 01/05/2017 6:26 PM FRANCISCO/[place] TD: 01/04/2017 18:55 JOB #: [id number] [facility] A Service of [facility] RADIOLOGY TEXT RESULTS PATIENT: DONNIE RILEY LOCATION: [facility] : 55 UNIT #: [id number] AGE: [address]: Fatuma Almazan MD SEX: F ORDER DR: MEDICAL IMAGING REPORT Page 1 of 1 COPY
--- NOTE | ~2017-01-04 | EKG ---
PATIENT: DONNIE RILEY UNIT #: [id number] Ventricular Rate: 66 BPM Atrial Rate: 66 BPM P-R Interval: 164 ms QRS Duration: 106 ms Q-T Interval: 418 ms QTC Calculation(Bezet): 438 ms P [place]: 49 degrees Calculated R [place]: 24 degrees Calculated T [place]: 98 degrees Diagnosis Line: Normal sinus rhythm Diagnosis Line: Low voltage QRS Diagnosis Line: Nonspecific T wave abnormality Diagnosis Line: Abnormal ECG Diagnosis Line: When compared with ECG of 10-JAN-2017 05:52, Diagnosis Line: (unconfirmed) Diagnosis Line: No significant change was found Diagnosis Line: Confirmed by SHAYAN LIRIANO MD ([id number]) on Diagnosis Line: 01/10/2017 11:29:32 PM INTERPRETING MD: JEANINE
--- NOTE | ~2017-01-04 | HP ---
Unit #: [id number] #: [id number] Patient: DONNIE RILEY [id number] [address] [address] [id number] I MR#: [id number] NAME: DONNIE RILEY ROOM: 88465 Age: 61 Sex: F Admission Date: 01/04/2017 : 1955 Attending Physician: Catalina Hagan M.D. Primary Care Physician: Alanis Perez Aprn HISTORY AND PHYSICAL CHIEF COMPLAINT Shortness of breath HISTORY This 61-year-old female with diastolic dysfunction, AODM, hypertension, is admitted for complaints of shortness of breath and congestive heart failure. The patient was in her usual state of health until about four days ago when she began to experience dyspnea on exertion, episodes of transient substernal chest pain radiating to her back. Notes some increasing pedal edema as well. She was seen in this emergency department yesterday where a CTA was negative for PE, did show large bilateral pleural effusions and compressive atelectasis. She went home, but returned earlier this morning with a blood pressure of 195/105 with chest x-ray showing worsening congestive heart failure. In the ER she was given aspirin, 40 mg of IV Lasix, 0.1 mg of clonidine with improvement of her blood pressure. She states that she is taking her home medicines. Serum glucose is 346. PAST MEDICAL HISTORY 1. History of diastolic dysfunction with congestive heart failure. Echo 08/2016 revealed an ejection fraction of 60% with mild MR and TR. Grade 1 left ventricular diastolic dysfunction noted. The patient underwent a Lexiscan Cardiolite nuclear stress test I believe at [facility] showing ejection fraction of 50% with small distal anterior apical wall ischemia. 2. AODM x2 years. 3. Hypertension. 4. Peripheral vascular disease. 5. 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 6. Cholecystectomy. 7. Tonsillectomy. 8. . ALLERGIES No known drug allergies. HOME MEDICATIONS Glucophage 1,000 mg b.i.d.; Lasix 40 mg daily; Norvasc 10 mg daily; lisinopril 20 mg b.i.d.; Aldactone 25 mg daily; Lipitor 20 mg q.h.s.; hydralazine 50 mg t.i.d.; and aspirin 81 mg daily. Unit #: [id number] #: [id number] Patient: DONNIE RILEY FAMILY HISTORY CHF. SOCIAL HISTORY The patient lives with her and son. Is a lifelong nonsmoker, does not drink alcohol or use illicit drugs. 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 Currently is recovering from her left foot surgery. REVIEW OF SYSTEMS Shortness of breath, chest pain, hypertension, AODM, peripheral vascular disease, above mentioned surgeries. All other systems were reviewed and otherwise negative. PHYSICAL EXAMINATION GENERAL: Pleasant 61-year-old female currently in no acute distress. VITAL SIGNS: Temperature 98.4, pulse 106, respirations 22, initial blood pressure 195/105, repeated blood pressure after treatment with systolic blood pressure of 140, O2 saturation 98% on room air. HEENT: Eyes - PERRLA, extraocular muscles are intact. Pharynx is benign. NECK: Supple without adenopathy or thyromegaly. Elevated JVD noted. CHEST: Actually fairly clear. CARDIAC: Normal S1 and S2 without S3, S4 or murmur. ABDOMEN: Bowel sounds are present. No hepatosplenomegaly, tenderness or masses. EXTREMITIES: With mild edema bilaterally. There is a wound left foot with dressing, which I did not remove. NEUROLOGIC: Patient is awake, alert and oriented. Cranial nerves are intact. Equal strength throughout. She is able to ambulate without assistance. DIAGNOSTIC STUDIES LABORATORY STUDIES: Hematocrit is 33.1, normal MCV, white blood count is 11.8, normal platelet count. Normal coags. SMA 7 - glucose 346, BUN 27, sodium 134. Albumin yesterday was 3.2. Lactic acid was normal. BNP 358. Cardiac markers are negative. Chest x-ray shows increasing congestive heart failure and small pleural effusions, along with likely atelectasis. CARDIOLOGY STUDIES: EKG shows a normal sinus rhythm, rate 98 with T wave inversions noted laterally. There was a note made in the [place] system of T wave abnormalities laterally as well. ASSESSMENT 1. Accelerated hypertension. 2. Uncontrolled type 2 diabetes mellitus. 3. Congestive heart failure with history of diastolic dysfunction. 4. Chest pain with mildly abnormal stress test noted earlier this year at [facility]. 5. Peripheral vascular disease. PLANS 1. Blood pressure control. 2. Diabetic control. 3. Lasix, nitropaste, aspirin. Obtain serial cardiac enzymes, I's and O's and daily weights. 4. Consult cardiology. Unit #: [id number] #: [id number] Patient: DONNIE RILEY Dictated by Catalina Hagan M.D. AML/ts TD: 01/04/2017 05:16 JOB #: [id number] HISTORY AND PHYSICAL Page 1 of 1 X Catalina Hagan MD X HISTORY AND PHYSICAL
--- NOTE | ~2017-01-04 | XA203 ---
[facility] A [facility] of [facility] RADIOLOGY TEXT RESULTS PATIENT: DONNIE RILEY LOCATION: [facility] 572-01 : 55 UNIT #: [id number] AGE: [address]: Fatuma Almazan MD SEX: F ORDER DR: [id number] [facility] [address] [facility]. [place], [place] [address] [id number] I MR#: [id number] Acc #: [id number] NAME: DONNIE RILEY : 1955 SEX: F STUDY DATE/TIME: 01/04/2017 14:50 UNIT: [facility] ROOM: 2 STUDY DESCRIPTION: XA Thoracentesis Attending Physician: Fatuma Almazan M.D. Ordering Physician: Catia Farfan M.D. Primary Care Physician: Alanis Perez Aprn MEDICAL IMAGING REPORT This report is preliminary unless electronic signature is present EXAM Ultrasound-guided paracentesis. INDICATION Right pleural effusion. Patient had a portable chest radiograph January 03, 2017 which showed a small right pleural effusion. Subsequent CT showed bilateral pleural effusions, right greater than left.. PROCEDURE The risks, benefits, and alternatives to the procedure were explained to the patient, signed, informed consent was obtained. She was seated in the upright position. Preliminary ultrasound of the right hemithorax was performed which demonstrated a large right pleural effusion. This image was permanently saved. Overlying skin was marked. Patient was prepped and draped in the usual sterile fashion. Time-out was performed as per protocol. Skin and subcutaneous tissues were assessed with buffered lidocaine. convoy therapeuticseh catheter was advanced into the fluid with aspiration of serous material. Catheter was hooked to suction tubing and there was evacuation of 500 mL of serous material. Catheter was removed. Manual pressure was applied until hemostasis was obtained. IMPRESSION Technically successful ultrasound-guided thoracentesis with evacuation of 500 mL of serous material. Ultrasound was used during the procedure and permanent images were saved. Dictated by... Sena Clement M.D. THIS IS AN ELECTRONICALLY VERIFIED REPORT Sena Clement M.D. at 01/07/2017 8:20 AM [facility] of [facility] RADIOLOGY TEXT RESULTS PATIENT: DONNIE RILEY LOCATION: [facility] 572-01 : 55 UNIT #: [id number] AGE: [address]: Fatuma Almazan MD SEX: F ORDER DR: Sudarshan TD: 01/05/2017 13:41 JOB #: [id number] MEDICAL IMAGING REPORT Page 1 of 1 COPY
--- NOTE | ~2017-01-04 | EKG ---
PATIENT: DONNIE RILEY UNIT #: [id number] Ventricular Rate: 65 BPM Atrial Rate: 65 BPM P-R Interval: 170 ms QRS Duration: 98 ms Q-T Interval: 426 ms QTC Calculation(Bezet): 443 ms P [place]: 44 degrees Calculated R [place]: 17 degrees Calculated T [place]: 112 degrees Diagnosis Line: Normal sinus rhythm Diagnosis Line: T wave abnormality, consider lateral ischemia Diagnosis Line: Abnormal ECG Diagnosis Line: When compared with ECG of 06-JAN-2017 05:57, Diagnosis Line: No significant change was found Diagnosis Line: Confirmed by SHAYAN LIRIANO MD ([id number]) on Diagnosis Line: 01/10/2017 11:28:43 PM INTERPRETING MD: JEANINE
--- NOTE | ~2017-01-04 | EKG ---
PATIENT: DONNIE RILEY UNIT #: [id number] Ventricular Rate: 98 BPM Atrial Rate: 98 BPM P-R Interval: 176 ms QRS Duration: 104 ms Q-T Interval: 356 ms QTC Calculation(Bezet): 454 ms P [place]: 52 degrees Calculated R [place]: 28 degrees Calculated T [place]: 119 degrees Diagnosis Line: Normal sinus rhythm Diagnosis Line: T wave abnormality, consider lateral ischemia Diagnosis Line: Abnormal ECG Diagnosis Line: When compared with ECG of 03-JAN-2017 10:38, Diagnosis Line: (unconfirmed) Diagnosis Line: ST elevation now present in Anterior leads Diagnosis Line: Confirmed by LYNN GUERRERO MD ([id number]) on Diagnosis Line: 01/04/2017 4:37:16 PM INTERPRETING MD: YOLANDA CHU
--- NOTE | ~2017-01-04 | CO ---
Unit #: [id number] #: [id number] Patient: DONNIE RILEY [id number] [address] [address] [id number] I MR#: [id number] NAME: DONNIE RILEY ROOM: 572 Age: 61 Sex: F Admission Date: 01/04/2017 : 1955 Attending Physician: Fatuma Almazan M.D. Primary Care Physician: Alanis Perez, Mayito Consultation Date: 01/04/2017 CONSULTATION REPORT REASON FOR CONSULT Pleural effusion. HISTORY OF PRESENT ILLNESS This is a 61-year-old female with a past medical history significant for diastolic congestive heart failure, diabetes, hypertension, who presented to the emergency room with progressive shortness of breath. Patient stated that she presented to the emergency room yesterday morning with a few days history of progressive dyspnea on exertion associated with dry cough, substernal chest discomfort radiating to her back and neck. She also noted bilateral lower extremity edema. CTA was done in the ER that showed no PE but she had a large bilateral pleural effusion with atelectasis. The patient was discharged home with a supposed followup with our service as an outpatient; however, she came back at 2:00 in the morning with worsening shortness of breath. A repeated chest x-ray showed pulmonary edema and pleural effusion. Patient was placed on Lasix and also she was noted to have a blood pressure in the high 190s so she was placed also on clonidine sublingual and she was admitted for further evaluation and management. Patient stated that she never smoked. She is not on oxygen at home. She also stated that her shortness of breath has been worsening slowly over time. She stated that she takes Lasix and she is compliant with her medication. But she is not strictly compliant with diet. PAST MEDICAL HISTORY 1. Diastolic congestive heart failure. 2. Diabetes. 3. Hypertension. PAST SURGICAL HISTORY 1. Cholecystectomy. 2. Tonsillectomy. 3. . ALLERGIES No known drug allergy. HOME MEDICATIONS Unit #: [id number] #: [id number] Patient: DONNIE RILEY 1. Metformin. 2. Lasix. 3. Norvasc. 4. Lisinopril. 5. Aldactone. 6. Lipitor. 7. Hydralazine. 8. Aspirin. FAMILY HISTORY Congestive heart failure. SOCIAL HISTORY The patient lives with her and son. She is a lifelong nonsmoker. She does not drink or use street drugs. 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 Currently she is recovering from left foot surgery. REVIEW OF SYSTEMS A 12-point review of systems were obtained and were negative except for what was mentioned in HPI. PHYSICAL EXAMINATION GENERAL: The patient is very pleasant, in no acute distress. VITAL SIGNS: Currently vital signs - blood pressure 158/72, respiratory rate 18, O2 saturation 98% on room air. HEENT: Atraumatic, normocephalic. PERRLA. EOMI. NECK: Mild JVD. CHEST: Diminished breath sounds bilaterally, mainly at the bases. HEART: S1, S2. No murmur, gallops, or rubs. ABDOMEN: Soft, nontender. Bowel sounds are positive. No hepatosplenomegaly. EXTREMITIES: Trace edema in the lower extremity and left foot is dressed for a chronic left foot wound. 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 No focal motor/sensory deficits. DIAGNOSTIC STUDIES LABORATORY: Glucose 346, potassium 4.0, creatinine 0.8, white blood count 11.8, hemoglobin 10.8. IMAGING: Chest x-ray and CT chest are consistent with large bilateral pleural effusion. ASSESSMENT 1. Bilateral large pleural effusion, likely congestive heart failure related. 2. Hypertensive emergency. 3. Acute on chronic diastolic congestive heart failure. 4. Uncontrolled diabetes. 5. Peripheral vascular disease. PLAN 1. Patient is hemodynamically stable currently on room air with a sat of 98%. 2. Given her site of pleural effusion, in the light of bilateral lower extremity edema and history of congestive heart failure. This represents likely exacerbation of diastolic congestive heart failure. Will continue patient with diuresing. However, due to the size of the effusion and symptoms she will benefit from thoracentesis and Unit #: [id number] #: [id number] Patient: DONNIE RILEY also on the other hand this would help to differentiate any other possible etiologies like underlying malignancy or other etiologies. 3. Will proceed with diagnostic and therapeutic thoracentesis in the morning. 4. Left hear cath per cardiology in the morning also. I would like to thank Dr Almazan for allowing me to be part of this patient's care. Dictated by... Napoleon Farfan M.D. EA/selina TD: 01/04/2017 12:45 JOB #: [id number] CONSULTATION REPORT Page 1 of 1 X NAPOLEON NEVAREZ MD CONSULTATION REPORT
[~2017-01-04 02:37] MED LIST changes: +HYDRALAZINE HCL50 MG PO
[2017-01-04 03:28] LABS: BASOPHIL# 0.1 X10e3 (0-0.3); BASOPHIL% 0.6 % (0-2.5); EOSINOPHIL# 0.5 X10e3 (0-0.7); EOSINOPHIL% 4.1 % (0.0-7.0); HEMATOCRIT 33.1 % (35.0-45.0); HEMOGLOBIN 10.8 gm/dL (12.0-16.0); LYMPHOCYTE# 1.5 X10e3 (1.0-3.5); LYMPHOCYTE% 12.5 % (17.0-45.0); MEAN CELL VOLUME 93.8 FL (83-96); MEAN CORPUSCULAR HEMOGLOBIN 30.6 PG (28-34); MEAN CORPUSCULAR HGB CONC 32.6 g/dL (30-36); MONOCYTE# 0.7 X10e3 (0-1.0); MONOCYTE% 6.1 % (3.0-12.0); NEUTROPHIL# 9.1 X10e3 (1.5-7.1); NEUTROPHIL% 76.7 % (40-75); PLATELET COUNT 307 X10e3 (140-420); RED BLOOD COUNT 3.52 X10e (3.90-5.30); RED CELL DISTRIBUTION WIDTH 14.4 % (11.0-15.5); WHITE BLOOD COUNT 11.8 X10e3 (4.0-10.5)
[2017-01-04 03:29] LABS: DIFF IND NO
[2017-01-04 03:37] LABS: POC - CKMB 2.4 ng/mL (0.0-7.9); POC - TROPONIN <0.05 ng/mL (<=0.05)
[2017-01-04 03:46] LABS: BUN/CREATININE RATIO 33.75; CALCIUM SERUM 8.8 mg/dL (8.4-10.2); CREATININE SERUM 0.8 mg/dL (0.6-1.4); GLOM FILT RATE Estimated 79.6 mL/min (>60)
[2017-01-04 05:20] LABS: POC - CKMB 1.7 ng/mL (0.0-7.9); POC - TROPONIN <0.05 ng/mL (<=0.05)
[2017-01-04 06:36] LABS: CK TOTAL 59 IU/L (26-140)
[2017-01-04 13:40] LABS: %MB 5.3 % (0.0-4.0); MB 3.3 ng/ml
[2017-01-04 16:43] LABS: BODY FLUID SOURCE PLEURAL
[2017-01-04 16:44] LABS: BF TOTAL NUCLEATED CELL COUNT 344 CMM (0-100); BODY FLUID APPEARANCE HAZY; BODY FLUID RBC <10000 CMM
[2017-01-04 17:00] LABS: PROTEIN, BODY FLUID 1.1 gm/dL
[2017-01-05 06:47] LABS: HEMATOCRIT 26.8 % (35.0-45.0); HEMOGLOBIN 9.1 gm/dL (12.0-16.0); MEAN CELL VOLUME 92.9 FL (83-96); MEAN CORPUSCULAR HEMOGLOBIN 31.4 PG (28-34); MEAN CORPUSCULAR HGB CONC 33.8 g/dL (30-36); MEAN PLATELET VOLUME 7.2 FL (6.5-11.5); RED BLOOD COUNT 2.89 X10e (3.90-5.30); RED CELL DISTRIBUTION WIDTH 13.9 % (11.0-15.5)
[2017-01-05 07:00] LABS: PROTHROMBIN TIME (PATIENT) 10.5 SECONDS (9.6-11.5)
[2017-01-05 07:18] LABS: BUN/CREATININE RATIO 44.44; CALCIUM SERUM 8.7 mg/dL (8.4-10.2); CREATININE SERUM 0.9 mg/dL (0.6-1.4); GLOM FILT RATE Estimated 69.1 mL/min (>60); POTASSIUM 4.1 mmol/L (3.5-5.1)
[2017-01-06 05:50] LABS: HEMATOCRIT 26.3 % (35.0-45.0); HEMOGLOBIN 8.9 gm/dL (12.0-16.0); MEAN CELL VOLUME 92.4 FL (83-96); MEAN CORPUSCULAR HEMOGLOBIN 31.2 PG (28-34); MEAN CORPUSCULAR HGB CONC 33.8 g/dL (30-36); MEAN PLATELET VOLUME 7.4 FL (6.5-11.5); RED BLOOD COUNT 2.84 X10e (3.90-5.30); RED CELL DISTRIBUTION WIDTH 14.3 % (11.0-15.5); WHITE BLOOD COUNT 8.5 X10e3 (4.0-10.5)
[2017-01-06 06:06] LABS: PARTIAL THROMBOPLASTIN TIME 24.3 SECONDS (23.5-31.3); PROTHROMBIN TIME (PATIENT) 10.4 SECONDS (9.6-11.5)
[2017-01-06 06:57] LABS: ALBUMIN SERUM 2.8 g/dL (3.5-5.0); BILIRUBIN,TOTAL 0.5 mg/dL (0.2-2.0); BUN/CREATININE RATIO 48.18; CALCIUM SERUM 8.8 mg/dL (8.4-10.2); CREATININE SERUM 1.1 mg/dL (0.6-1.4); GLOM FILT RATE Estimated 54.2 mL/min (>60); POTASSIUM 4.5 mmol/L (3.5-5.1); PROTEIN TOTAL SERUM 5.2 g/dL (6.0-8.3)
[2017-01-07 06:50] LABS: HEMATOCRIT 27.1 % (35.0-45.0); HEMOGLOBIN 9.2 gm/dL (12.0-16.0); MEAN CELL VOLUME 93.2 FL (83-96); MEAN CORPUSCULAR HEMOGLOBIN 31.5 PG (28-34); MEAN CORPUSCULAR HGB CONC 33.9 g/dL (30-36); MEAN PLATELET VOLUME 7.4 FL (6.5-11.5); RED BLOOD COUNT 2.91 X10e (3.90-5.30); RED CELL DISTRIBUTION WIDTH 13.9 % (11.0-15.5); WHITE BLOOD COUNT 8.8 X10e3 (4.0-10.5)
[2017-01-07 07:35] LABS: CALCIUM SERUM 8.7 mg/dL (8.4-10.2); GLOM FILT RATE Estimated 60.8 mL/min (>60)
[2017-01-08 06:16] LABS: MEAN CELL VOLUME 94.1 FL (83-96); MEAN CORPUSCULAR HEMOGLOBIN 31.2 PG (28-34); MEAN CORPUSCULAR HGB CONC 33.1 g/dL (30-36); MEAN PLATELET VOLUME 7.9 FL (6.5-11.5); RED BLOOD COUNT 2.87 X10e (3.90-5.30); RED CELL DISTRIBUTION WIDTH 14.1 % (11.0-15.5); WHITE BLOOD COUNT 8.2 X10e3 (4.0-10.5)
[2017-01-08 07:22] LABS: BUN/CREATININE RATIO 48.18; CALCIUM SERUM 8.6 mg/dL (8.4-10.2); CREATININE SERUM 1.1 mg/dL (0.6-1.4); GLOM FILT RATE Estimated 54.2 mL/min (>60); MAGNESIUM 2.4 mg/dL (1.6-3.0); POTASSIUM 4.6 mmol/L (3.5-5.1)
[2017-01-09 06:40] LABS: BUN/CREATININE RATIO 45.45; CREATININE SERUM 1.1 mg/dL (0.6-1.4); GLOM FILT RATE Estimated 54.2 mL/min (>60); MAGNESIUM 2.3 mg/dL (1.6-3.0); POTASSIUM 4.6 mmol/L (3.5-5.1)
[2017-01-10 05:25] LABS: HEMOGLOBIN 9.9 gm/dL (12.0-16.0); MEAN CELL VOLUME 93.6 FL (83-96); MEAN CORPUSCULAR HGB CONC 33.1 g/dL (30-36); MEAN PLATELET VOLUME 7.6 FL (6.5-11.5); RED BLOOD COUNT 3.21 X10e (3.90-5.30); WHITE BLOOD COUNT 10.6 X10e3 (4.0-10.5)
[2017-01-10 05:40] LABS: PARTIAL THROMBOPLASTIN TIME 23.9 SECONDS (23.5-31.3)
[2017-01-10 06:07] LABS: BUN/CREATININE RATIO 43.63; CALCIUM SERUM 8.8 mg/dL (8.4-10.2); CREATININE SERUM 1.1 mg/dL (0.6-1.4); GLOM FILT RATE Estimated 54.2 mL/min (>60); MAGNESIUM 2.3 mg/dL (1.6-3.0); POTASSIUM 5.2 mmol/L (3.5-5.1)
[2017-01-10 15:25] LABS: CALCIUM SERUM 8.6 mg/dL (8.4-10.2); GLOM FILT RATE Estimated 60.8 mL/min (>60); POTASSIUM 4.8 mmol/L (3.5-5.1)
[2017-01-10 18:16] LABS: ANGIO %MB 10.6 % (0.0-4.0); ANGIO MB 6.8 ng/ml
[2017-01-11 06:38] LABS: BASOPHIL# 0.1 X10e3 (0-0.3); BASOPHIL% 0.6 % (0-2.5); EOSINOPHIL# 0.5 X10e3 (0-0.7); EOSINOPHIL% 5.3 % (0.0-7.0); LYMPHOCYTE# 1.5 X10e3 (1.0-3.5); MEAN CELL VOLUME 93.4 FL (83-96); MEAN CORPUSCULAR HEMOGLOBIN 31.1 PG (28-34); MEAN CORPUSCULAR HGB CONC 33.3 g/dL (30-36); MEAN PLATELET VOLUME 7.7 FL (6.5-11.5); MONOCYTE# 0.9 X10e3 (0-1.0); MONOCYTE% 9.3 % (3.0-12.0); NEUTROPHIL# 6.9 X10e3 (1.5-7.1); NEUTROPHIL% 69.8 % (40-75); PLATELET COUNT 274 X10e3 (140-420); RED BLOOD COUNT 2.89 X10e (3.90-5.30); RED CELL DISTRIBUTION WIDTH 13.6 % (11.0-15.5); WHITE BLOOD COUNT 9.9 X10e3 (4.0-10.5)
[2017-01-11 06:42] LABS: DIFF IND NO
[2017-01-11 07:17] LABS: BUN/CREATININE RATIO 34.16; CALCIUM SERUM 8.6 mg/dL (8.4-10.2); CREATININE SERUM 1.2 mg/dL (0.6-1.4); GLOM FILT RATE Estimated 48.7 mL/min (>60); POTASSIUM 4.4 mmol/L (3.5-5.1)
[2017-01-12 12:49] LABS: HEMOGLOBIN 9.7 gm/dL (12.0-16.0); MEAN CELL VOLUME 93.5 FL (83-96); MEAN CORPUSCULAR HEMOGLOBIN 30.4 PG (28-34); MEAN CORPUSCULAR HGB CONC 32.5 g/dL (30-36); MEAN PLATELET VOLUME 7.8 FL (6.5-11.5); RED BLOOD COUNT 3.21 X10e (3.90-5.30); RED CELL DISTRIBUTION WIDTH 13.9 % (11.0-15.5)
[2017-01-12 12:51] LABS: WHITE BLOOD COUNT 15.4 X10e3 (4.0-10.5)
[2017-01-12 13:19] LABS: BUN/CREATININE RATIO 30.83; CALCIUM SERUM 8.6 mg/dL (8.4-10.2); CREATININE SERUM 1.2 mg/dL (0.6-1.4); GLOM FILT RATE Estimated 48.7 mL/min (>60); MAGNESIUM 2.1 mg/dL (1.6-3.0); POTASSIUM 4.6 mmol/L (3.5-5.1)
[2017-01-13 05:43] LABS: HEMATOCRIT 27.6 % (35.0-45.0); HEMOGLOBIN 9.3 gm/dL (12.0-16.0); MEAN CELL VOLUME 93.3 FL (83-96); MEAN CORPUSCULAR HEMOGLOBIN 31.3 PG (28-34); MEAN CORPUSCULAR HGB CONC 33.6 g/dL (30-36); RED BLOOD COUNT 2.96 X10e (3.90-5.30); RED CELL DISTRIBUTION WIDTH 13.4 % (11.0-15.5); WHITE BLOOD COUNT 12.1 X10e3 (4.0-10.5)
[2017-01-13 05:59] LABS: URINE APPEARANCE CLEAR; URINE BILIRUBIN NEG (NEG); URINE BLOOD NEG (NEG); URINE COLOR YELLOW; URINE GLUCOSE 100 MG/DL (NEG); URINE KETONE NEG (NEG); URINE LEUKOCYTE ESTERASE NEG (NEG); URINE NITRATE NEG (NEG); URINE PROTEIN 2+ (NEG); URINE SPECIFIC GRAVITY 1.014 (1.003-1.035); URINE UROBILINOGEN 0.2 MG/DL (NEG)
[2017-01-13 06:00] LABS: URBCS1 AUWI 0-2 /[HPF] (0-2); URINE BACTERIA AUWI NEG (NEGATIVE); URINE SQUAMOUS EPITHELIAL CELL OCC /[HPF]; UWBCS1 AUWI 0-2 (0-5)
[2017-01-13 06:02] LABS: CULTURE INDICATED? NO
[2017-01-13 06:30] LABS: ALBUMIN SERUM 2.5 g/dL (3.5-5.0); BILIRUBIN,TOTAL 0.3 mg/dL (0.2-2.0); BUN/CREATININE RATIO 32.5; CALCIUM SERUM 8.6 mg/dL (8.4-10.2); CREATININE SERUM 1.2 mg/dL (0.6-1.4); GLOM FILT RATE Estimated 48.7 mL/min (>60); POTASSIUM 4.1 mmol/L (3.5-5.1); PROTEIN TOTAL SERUM 5.3 g/dL (6.0-8.3)
[2017-01-13] MEDS ORDERED: NITROGLYGERIN0.4 MG SL (13:03)
[2017-01-13] MEDS ORDERED: CLOPIDOGREL75 MG PO (13:03)
[2017-01-13] MEDS ORDERED: COREG12.5 M1 PO (14:08)
== END 2017-01-13 15:02 | disposition home or self-care (01) | DRG 246 ==
LOC: CED 02:37 → CEDOF 04:38 → C5C 04:38
PROVIDERS: Internal Medicine; Internal Medicine Cardiovascular Disease; Student in an Organized Health Care Education/Training Program
PROC: 0W9930Z Drainage of Right Pleural Cavity with Drainage Device, Percutaneous Approach (ICD-10-PCS; 2017-01-04)
PROC: 3E0234Z Introduction of Serum, Toxoid and Vaccine into Muscle, Percutaneous Approach (ICD-10-PCS; principal; 2017-01-05)
PROC: 4A023N7 Measurement of Cardiac Sampling and Pressure, Left Heart, Percutaneous Approach (ICD-10-PCS; 2017-01-06)
PROC: B211YZZ Fluoroscopy of Multiple Coronary Arteries using Other Contrast (ICD-10-PCS; 2017-01-06)
PROC: B215YZZ Fluoroscopy of Left Heart using Other Contrast (ICD-10-PCS; 2017-01-06)
PROC: 027037Z Dilation of Coronary Artery, One Artery with Four or More Drug-eluting Intraluminal Devices, Percutaneous Approach (ICD-10-PCS; 2017-01-10)
DX: I11.0 Hypertensive heart disease with heart failure (principal); J90 Pleural effusion, not elsewhere classified; E11.649 Type 2 diabetes mellitus with hypoglycemia without coma; I08.1 Rheumatic disorders of both mitral and tricuspid valves; E11.65 Type 2 diabetes mellitus with hyperglycemia; E44.1 Mild protein-calorie malnutrition; J98.11 Atelectasis; I16.1 Hypertensive emergency; I50.33 Acute on chronic diastolic (congestive) heart failure; I73.9 Peripheral vascular disease, unspecified; Z89.422 Acquired absence of other left toe(s); Z90.49 Acquired absence of other specified parts of digestive tract; Z79.82 Long term (current) use of aspirin; D50.9 Iron deficiency anemia, unspecified; I25.119 Atherosclerotic heart disease of native coronary artery with unspecified angina pectoris; Z79.4 Long term (current) use of insulin; E87.5 Hyperkalemia; R11.0 Nausea; D72.829 Elevated white blood cell count, unspecified; Z23 Encounter for immunization; K59.00 Constipation, unspecified; T50.995A Adverse effect of other drugs, medicaments and biological substances, initial encounter
CPT/HCPCS: 36415; 71010; 71020; 80048; 80053; 80061; 81003; 82042; 82550; 82553; 82947; 83615; 83735; 83880; 83986; 84157; 84484; 85025; 85027; 85049; 85347; 85610; 85730; 87070; 87205; 88108; 88305; 89051; 90732; 93005; 94760; 96374; 97116; 97162; 97166; 99285; C1725; C1769; C1874; C1887; C1894; G0009; J0461; J1327; J1644; J1650; J1815; J1940; J2250; J2270; J2405; J2550; J3010

== ENCOUNTER 2017-02-07 01:24 | Observation (INO) | payer OTHER ==
--- NOTE | ~2017-02-07 | CT71 ---
[facility] A Service of [facility] RADIOLOGY TEXT RESULTS PATIENT: DONNIE RILEY LOCATION: C3A 329 : 55 UNIT #: [id number] AGE: [address]: Pippa Gibbs MD SEX: F ORDER DR: [id number] [id number] [facility] [place], [place] [address] [id number] MR#: [id number] Acc #: [id number] NAME: DONNIE RILEY : 1955 SEX: F STUDY DATE/TIME: 02/07/2017 2:53 UNIT: C3A PCU ROOM: [address] [place] [address] DESCRIPTION: CT Head Wo Contrast Attending Physician: Pippa Gibbs M.D. Ordering Physician: Vincent Aguirre D.O. Primary Care Physician: Alanis Perez Aprn MEDICAL IMAGING REPORT This report is preliminary unless electronic signature is present EXAM CT head, noncontrast, 02/07/17. HISTORY 61-year-old female in the ED after a fall with head injury 1 week ago. Right forehead hematoma. Tonight, she complains of 3-day history of weakness with some confusion/mental status changes and hand numbness. TECHNIQUE CT examination of the head was performed without IV contrast. This CT exam was performed with one or more of the following radiation dose reduction techniques: Automatic exposure control, adjustment of mA and/or kV according to patient size, and iterative reconstruction. COMPARISON Recent CT head, 01/31/2017. FINDINGS Right upper anterior frontal scalp hematoma is unchanged. No visible skull fracture. No acute intracranial abnormality. No evidence of intracranial hemorrhage, mass, mass effect, cerebral edema or hydrocephalus. IMPRESSION 1. No acute intracranial abnormality. 2. Right upper anterior frontal scalp hematoma. No skull fracture. 3. No change since the recent prior study of 01/31/2017. Dictated by... Nico Miranda M.D. [facility] A Service [facility] RADIOLOGY TEXT RESULTS PATIENT: DONNIE RILEY LOCATION: C3A 329- : 55 UNIT #: [id number] AGE: [address]: Pippa Gibbs MD SEX: F ORDER DR: THIS IS AN ELECTRONICALLY VERIFIED REPORT Nico Miranda M.D. at 02/07/2017 9:57 PM ANIBAL/phillip TD: 02/07/2017 09:22 JOB #: [id number] MEDICAL IMAGING REPORT Page 1 of 1 COPY
--- NOTE | ~2017-02-07 | EKG ---
PATIENT: DONNIE RILEY UNIT #: [id number] Ventricular Rate: 87 BPM Atrial Rate: 87 BPM P-R Interval: 172 ms QRS Duration: 96 ms Q-T Interval: 384 ms QTC Calculation(Bezet): 462 ms P [place]: 67 degrees Calculated R [place]: 49 degrees Calculated T [place]: 122 degrees Diagnosis Line: Normal sinus rhythm Diagnosis Line: T wave abnormality, consider lateral ischemia Diagnosis Line: Abnormal ECG Diagnosis Line: When compared with ECG of 07-FEB-2017 04:25, Diagnosis Line: (unconfirmed) Diagnosis Line: No significant change was found Diagnosis Line: Confirmed by SHAYAN LIRIANO MD ([id number]) on Diagnosis Line: 02/07/2017 10:42:18 PM INTERPRETING : JEANINE
--- NOTE | ~2017-02-07 | HP ---
Unit #: [id number] #: [id number] Patient: DONNIE RILEY [id number] [address] [address] [id number] I MR#: [id number] NAME: DONNIE RILEY ROOM: 329 Age: 61 Sex: F Admission Date: 02/07/2017 : 1955 Attending Physician: Pippa Gibbs M.D. Primary Care Physician: Alanis Perez Aprn HISTORY AND PHYSICAL PAST MEDICAL HISTORY 1. Diastolic heart failure. 2. Pleural effusion. 3. Diabetes. 4. Hypertension. SURGICAL HISTORY 1. Cholecystectomy. 2. Tonsillectomy. 3. . ALLERGIES No known drug allergies. MEDICATIONS As per NOV. Has been reviewed. PHYSICAL EXAMINATION VITAL SIGNS: Temperature 98, pulse rate 70, respirations 12, blood pressure 130/70. NEUROLOGIC: Awake, alert, oriented. No neural deficits. HEENT: PERRLA. EOMI. NECK: Supple. No JVD. CHEST: Bilateral air entry. Bilateral mild rhonchi. GI: Nontender. Soft. Bowel sounds positive. EXTREMITIES: Positive dressing on the left foot. ASSESSMENT AND PLAN 1. Chest pain. 2. Weakness. 3. High blood pressure. 4. Fall. 5. Diabetes mellitus. 6. Left lower extremity wound. PLAN Plan is to continue the patient on home meds. Cardiology consultation. GI and DVT prophylaxis. Please see orders for detailed plan. "Thank you very much for this consultation." Unit #: [id number] #: [id number] Patient: DONNIE RILEY Dictated by Elida Campos/yamilka TD: 02/07/2017 11:57 JOB #: [id number] HISTORY AND PHYSICAL Page 1 of 1 X Pippa Gibbs MD HISTORY AND PHYSICAL
--- NOTE | ~2017-02-07 | CO ---
Unit #: [id number] #: [id number] Patient: DONNIE RILEY [id number] [facility] [address] [facility]. [place], [place] [address] [id number] I MR#: [id number] NAME: DONNIE RILEY ROOM: 329 Age: 61 Sex: F Admission Date: 02/07/2017 : 1955 Attending Physician: Pippa Gibbs M.D. Primary Care Physician: Alanis Perez Aprn Consultation Date: 02/07/2017 CONSULTATION REPORT REASON FOR CONSULTATION Cardiovascular management. HISTORY OF PRESENT ILLNESS This is a 61-year-old female known to our group with recent hospitalization to [facility] on 01/04/2017 for chest pain, coronary artery disease, diastolic congestive heart failure, and bilateral pleural effusions, status post thoracentesis. The patient underwent a cardiac catheterization on 01/06/2017. She underwent PCI and stent in the first diagonal, distal LAD, mid LAD, and second obtuse marginal. Ejection fraction was low at 35%. Additional past medical history includes hypertension, diabetes, and peripheral vascular disease. The patient presented to the hospital with increased glucose levels, weakness, and numbness in the hands and feet. According to the patient, she fell at home approximately one week ago. As she was coming the down the stairs when it was raining and she fell forward and hit her face and head. She did not seek immediate medical attention. She denies dizziness, palpitations, or syncope. There are no reports of PND, orthopnea, or lower extremity edema. She has had some intermittent episodes of chest pain, which she described as "hurting pain." The pain is located in the left anterior chest. It is mild. There is no radiation or associated nausea, vomiting, or diaphoresis. She states that she has been compliant with her medications, has been taking everything as ordered. In the emergency department, her temperature is 98.7, pulse 95, respirations are 18, and blood pressure 164/89 mmHg. She was started on normal saline and given baby aspirin. She was admitted for hyperglycemia, generalized weakness, and chest pain. Cardiology was consulted for cardiovascular management and chest pain. The patient's labs have been reviewed cardiac and enzymes are negative. EKG revealed sinus rhythm with some lateral T-wave inversion, but no acute findings. There are no complaints of chest pain actively. PAST MEDICAL HISTORY 1. Recent admission to [facility] on 01/04/2017 for chest pain; CAD; diastolic congestive heart failure; bilateral pleural effusions, requiring thoracentesis; status post cardiac catheterization on 01/06/2017, revealed left main normal, LAD 75% to 80% involving the second diagonal and second septal combine mechanic. Proximal to distal LAD 90%. Second diagonal 60 to 70% and then 95%. Distal vessel is small. Second posterior marginal 95%. Third marginal 80%. A small right coronary artery with chronic total occlusion. Ejection fraction 35%. Status post PCI and stent in the first diagonal, distal LAD, mid LAD, and second Unit #: [id number] #: [id number] Patient: DONNIE RILEY obtgavin marginal, 01/10/2017. 2. Ischemic cardiomyopathy. 3. Chronic systolic congestive heart failure. 4. Hypertension. 5. Diabetes mellitus, type 2. 6. Peripheral vascular disease. PAST SURGICAL HISTORY 1. Cardiac catheterization, PCI, and stent. 2. Amputation of toes in her left foot. 3. Cholecystectomy. 4. Tonsillectomy. 5. . MEDICATIONS 1. Hydralazine 50 mg p.o. b.i.d. 2. Aspirin 81 mg p.o. daily. 3. Plavix 75 mg p.o. daily. 4. Nitroglycerin 0.4 mg sublingual every 5 minutes x3 p.r.n. for chest pain. 5. Coreg 12.5 mg p.o. b.i.d. 6. Glucophage 1000 mg p.o. b.i.d. 7. Lasix 40 mg p.o. daily. 8. Lisinopril 20 mg p.o. b.i.d. 9. Spironolactone 25 mg p.o. daily. 10. Lipitor 80 mg at bedtime. ALLERGIES No known drug allergies. SOCIAL HISTORY The patient lives in a private residence. She is a nonsmoker. There are no reports of alcohol or illicit drug use. FAMILY HISTORY Significant for heart disease. Her father had myocardial infarction and at the age of 71. REVIEW OF SYSTEMS A 10-point review of systems is negative except for details noted above in HPI. PHYSICAL EXAMINATION VITAL SIGNS: Temperature 98.7, pulse 108, and blood pressure 147/80. CONSTITUTIONAL: This is a 61-year-old white female. No acute distress. SKIN: Warm and dry. Generalized bruisings and abrasions. NECK: Supple. No jugular venous distention. No hepatojugular reflux. Normal carotid upstrokes. No carotid bruits auscultated. HEART: S1 and S2. Regular rate and rhythm. No murmurs, rubs, or gallops. LUNGS: Bilateral breath sounds have good air entry throughout all lung sena. Respirations are even and nonlabored. No rales, rhonchi, or wheezes. ABDOMEN: Soft, nontender, and nondistended. Positive bowel sounds auscultated x4 quadrants. No ascites noted. EXTREMITIES: Bilateral lower extremities have no pretibial pitting edema. DP and PT pulses are 2+. Capillary refill is less than 2 seconds. Unit #: [id number] #: [id number] Patient: DONNIE RILEY DIAGNOSTIC STUDIES LABORATORY RESULTS: White blood cell count 8.3, hemoglobin 10.1, hematocrit 29.9, and platelets are 303. Sodium 134, potassium 3.9, chloride 102, CO2 of 24, BUN 27, creatinine 0.8, glucose 472, albumin 2.7, and total protein 5.5. AST 16, ALT 18, and alkaline phos 57. Troponin 0.05 and 0.05. TSH normal at 2016. INR 1.0. IMAGING: CT of the head revealed a right upper anterior frontal scalp hematoma. No acute findings. CARDIOVASCULAR: Electrocardiogram reveals sinus rhythm with T-wave inversion in the lateral leads. IMPRESSION 1. Generalized weakness, rule out orthostasis. 2. Status post fall with right upper anterior frontal scalp hematoma. 3. Intermittent chest pain. 4. Diabetes mellitus type 2, uncontrolled. 5. Hypertension. 6. Ischemic cardiomyopathy with an ejection fraction of 35%. 7. Chronic systolic congestive heart failure, compensated. 8. Coronary artery disease with recent percutaneous coronary intervention and stent in the first diagonal, distal LAD, mid LAD, and second obtuse marginal, 01/10/2017. 9. Right coronary artery, small with chronic total occlusion. PLAN 1. The patient presented to the hospital with complaints of weakness, hyperglycemia, and a recent fall. 2. She was admitted for further evaluation and cardiology was consulted. 3. Cardiac enzymes are negative and EKG is nonacute. 4. The patient will be continued on dual anti-platelet therapy, high-dose statin, beta-luis antonio, and STEPHANIE inhibitor. 5. There is no evidence of congestive heart failure on exam. 6. The patient will benefit from a 2D echocardiogram as an outpatient to reassess LV function. Ejection fraction is equal or less than 35%. She will need an AICD. Dictated by... MILTON Riley TD: 02/08/2017 15:01 JOB #: [id number] CONSULTATION REPORT Page 1 of 1 X X CONSULTATION REPORT
--- NOTE | ~2017-02-07 | EKG ---
PATIENT: DONNIE RILEY UNIT #: [id number] Ventricular Rate: 78 BPM Atrial Rate: 78 BPM P-R Interval: 156 ms QRS Duration: 94 ms Q-T Interval: 392 ms QTC Calculation(Bezet): 446 ms P Central: 51 degrees Calculated R Central: 77 degrees Calculated T Central: 129 degrees Diagnosis Line: Normal sinus rhythm Diagnosis Line: T wave abnormality, consider lateral ischemia Diagnosis Line: Abnormal ECG Diagnosis Line: When compared with ECG of 08-FEB-2017 06:11, Diagnosis Line: (unconfirmed) Diagnosis Line: No significant change was found Diagnosis Line: Confirmed by SHAYAN LIRIANO MD ([id number]) on Diagnosis Line: 02/08/2017 10:15:25 PM INTERPRETING : JEANINE
[~2017-02-07 01:24] MED LIST changes: +CLOPIDOGREL75 MG PO; +COREG12.5 M1 PO; +NITROGLYGERIN0.4 MG SL
[2017-02-07 02:46] LABS: BASOPHIL% 0.5 % (0-2.5); EOSINOPHIL# 0.3 X10e3 (0-0.7); EOSINOPHIL% 4.1 % (0.0-7.0); HEMATOCRIT 29.9 % (35.0-45.0); HEMOGLOBIN 10.1 gm/dL (12.0-16.0); LYMPHOCYTE# 1.2 X10e3 (1.0-3.5); LYMPHOCYTE% 14.6 % (17.0-45.0); MEAN CELL VOLUME 89.9 FL (83-96); MEAN CORPUSCULAR HEMOGLOBIN 30.4 PG (28-34); MEAN CORPUSCULAR HGB CONC 33.8 g/dL (30-36); MEAN PLATELET VOLUME 7.2 FL (6.5-11.5); MONOCYTE# 0.7 X10e3 (0-1.0); MONOCYTE% 8.7 % (3.0-12.0); NEUTROPHIL% 72.1 % (40-75); PLATELET COUNT 303 X10e3 (140-420); RED BLOOD COUNT 3.33 X10e (3.90-5.30); RED CELL DISTRIBUTION WIDTH 13.6 % (11.0-15.5); WHITE BLOOD COUNT 8.3 X10e3 (4.0-10.5)
[2017-02-07 02:48] LABS: DIFF IND NO
[2017-02-07 03:19] LABS: PARTIAL THROMBOPLASTIN TIME 23.9 SECONDS (23.5-31.3); PROTHROMBIN TIME (PATIENT) 10.3 SECONDS (9.6-11.5)
[2017-02-07 03:22] LABS: ALBUMIN SERUM 2.7 g/dL (3.5-5.0); BILIRUBIN, DIRECT 0.1 mg/dL (0.0-0.2); BILIRUBIN,INDIRECT 0.4 mg/dL (0.0-0.9); BILIRUBIN,TOTAL 0.5 mg/dL (0.2-2.0); BUN/CREATININE RATIO 33.75; CALCIUM SERUM 8.6 mg/dL (8.4-10.2); CREATININE SERUM 0.8 mg/dL (0.6-1.4); GLOM FILT RATE Estimated 79.6 mL/min (>60); POTASSIUM 3.9 mmol/L (3.5-5.1); PROTEIN TOTAL SERUM 5.5 g/dL (6.0-8.3)
[2017-02-07 04:51] LABS: URINE SOURCE CLEAN CATCH
[2017-02-07 05:07] LABS: URINE APPEARANCE CLEAR; URINE BILIRUBIN NEG (NEG); URINE BLOOD 1+ (NEG); URINE COLOR YELLOW; URINE GLUCOSE >1000 MG/DL (NEG); URINE KETONE NEG (NEG); URINE LEUKOCYTE ESTERASE NEG (NEG); URINE NITRATE NEG (NEG); URINE PROTEIN 3+ (NEG); URINE SPECIFIC GRAVITY 1.026 (1.003-1.035); URINE UROBILINOGEN 0.2 MG/DL (NEG)
[2017-02-07 05:10] LABS: U HYALINE CASTS AUWI 0-2 /[LPF]; URINE BACTERIA AUWI NEG (NEGATIVE); URINE SQUAMOUS EPITHELIAL CELL OCC /[HPF]
[2017-02-07 05:12] LABS: CULTURE INDICATED? NO
[2017-02-07 08:45] LABS: %MB 5.2 % (0.0-4.0); MB 3.2 ng/ml
[2017-02-07 12:40] LABS: MB 3.8 ng/ml
[2017-02-08 05:42] LABS: HEMATOCRIT 28.7 % (35.0-45.0); HEMOGLOBIN 9.7 gm/dL (12.0-16.0); MEAN CELL VOLUME 90.2 FL (83-96); MEAN CORPUSCULAR HEMOGLOBIN 30.4 PG (28-34); MEAN CORPUSCULAR HGB CONC 33.8 g/dL (30-36); MEAN PLATELET VOLUME 7.3 FL (6.5-11.5); RED BLOOD COUNT 3.18 X10e (3.90-5.30); RED CELL DISTRIBUTION WIDTH 13.6 % (11.0-15.5); WHITE BLOOD COUNT 7.8 X10e3 (4.0-10.5)
[2017-02-08 06:48] LABS: ALBUMIN SERUM 2.5 g/dL (3.5-5.0); BILIRUBIN,TOTAL 0.6 mg/dL (0.2-2.0); CALCIUM SERUM 8.8 mg/dL (8.4-10.2); CREATININE SERUM 0.8 mg/dL (0.6-1.4); GLOM FILT RATE Estimated 79.6 mL/min (>60); POTASSIUM 4.4 mmol/L (3.5-5.1)
[2017-02-08] MEDS ORDERED: COREG12.5 MG PO (12:33)
[2017-02-08] MEDS ORDERED: COREG6.25 MG PO (12:34)
[2017-02-08] MEDS ORDERED: LASIX PO (12:35)
[2017-02-08] MEDS ORDERED: LISINOPRIL10 MG PO (12:36)
[2017-02-08] MEDS ORDERED: COMBIVENT U/D3 M2 INH (12:37)
[2017-02-08] MEDS ORDERED: EFFIENT10 MG PO (12:38)
[2017-02-08] MEDS ORDERED: NOVOLOG100 UNITS/ SUBQ (12:40)
== END 2017-02-08 18:30 | disposition home or self-care (01) | DRG 948 ==
LOC: CED 01:24 → C3A PCU 05:00 → CEDOF 05:00 → C3A PCU 05:00 → CED 05:14 → CEDOF 05:14 → C3A PCU 08:40 → CEDOF 08:40 → C3A PCU 02-08 18:30
PROVIDERS: Emergency Medicine; Internal Medicine; Internal Medicine Cardiovascular Disease
DX: R53.1 Weakness (principal); S00.03XA Contusion of scalp, initial encounter; W19.XXXA Unspecified fall, initial encounter; R07.9 Chest pain, unspecified; I25.10 Atherosclerotic heart disease of native coronary artery without angina pectoris; I25.82 Chronic total occlusion of coronary artery; I25.5 Ischemic cardiomyopathy; I11.0 Hypertensive heart disease with heart failure; I50.22 Chronic systolic (congestive) heart failure; E11.65 Type 2 diabetes mellitus with hyperglycemia; Z79.4 Long term (current) use of insulin; Z79.84 Long term (current) use of oral hypoglycemic drugs; E78.5 Hyperlipidemia, unspecified; Z95.5 Presence of coronary angioplasty implant and graft; I73.9 Peripheral vascular disease, unspecified; Z79.82 Long term (current) use of aspirin; Z79.02 Long term (current) use of antithrombotics/antiplatelets; Z89.422 Acquired absence of other left toe(s)
CPT/HCPCS: 36415; 70450; 80048; 80053; 80076; 81003; 82550; 82553; 82947; 84484; 85025; 85027; 85610; 85730; 93005; 94640; 94760; 96372; 97162; 97166; 99285; G0378; J0360; J1650; J1815